=== PATIENT | female | born 1945 | race Caucasian/White ===

== ENCOUNTER → 2016-04-25 | Outpatient (CLI) | payer OTHER, MEDICARE ==
--- NOTE | 2016-04-25 15:27 | DI ---
History: Left knee pain. 4 view. Prior study: None. Findings: Advanced degenerative changes of the patellofemoral junction with small knee joint effusion observed is in the suprapatellar bursa. Mild valgus angulation of the knee. Moderate degenerative ch anges in the medial compartment with some marginal osteophytes. Patient has a fabella. Impression: Degenerative changes patellofemoral junction Some narrowing of the medial joint compartment with mild valgus angulation. Small knee joint effusion
== END ==
LOC: ORTHO 11:06
PROVIDERS: ATTEND Physician Assistant
DX: M25.562 Pain in left knee (principal); M17.12 Unilateral primary osteoarthritis, left knee; M25.462 Effusion, left knee; W00.0XXA Fall on same level due to ice and snow, initial encounter; Y93.89 Activity, other specified; Y92.481 Parking lot as the place of occurrence of the external cause
CPT/HCPCS: 73564

== ENCOUNTER → 2016-05-18 | Outpatient (CLI) | payer OTHER, MEDICARE | LOC: MMPC 10:00 | PROVIDERS: ATTEND Orthopaedic Surgery | DX: M17.12 Unilateral primary osteoarthritis, left knee (principal) | CPT/HCPCS: 20610 ×2; 99213; G0463; J7325 ==

== ENCOUNTER → 2016-06-23 | Outpatient (CLI) | payer OTHER, MEDICARE | LOC: MMPC 09:00 | PROVIDERS: ATTEND Family Medicine | DX: I10 Essential (primary) hypertension (principal); E78.5 Hyperlipidemia, unspecified; E11.9 Type 2 diabetes mellitus without complications; F41.9 Anxiety disorder, unspecified; F32.9 Major depressive disorder, single episode, unspecified; E66.9 Obesity, unspecified; R35.0 Frequency of micturition | CPT/HCPCS: 99214 ==

== ENCOUNTER → 2016-06-26 | Outpatient (CLI) | payer OTHER, MEDICARE | LOC: MMPC 10:00 | PROVIDERS: ATTEND Orthopaedic Surgery | DX: M17.12 Unilateral primary osteoarthritis, left knee (principal) | CPT/HCPCS: 20610 ×2; G0463; J0702 ==

== ENCOUNTER → 2016-07-03 | Outpatient (CLI) | payer OTHER, MEDICARE ==
--- NOTE | 2016-07-03 12:15 | DI ---
CT LOWER EXTR W/O CONTRAST,07/03/2016 9:54 AM: Clinical History: Primary osteoarthritis of the left knee. Previous Exam: None at this facility. Findings: Multiple helically acquired CT images are obtained through the left hip and and the left femur demons trating diffuse degenerative changes of the left knee. Osteophytes are noted. There is some subchondr al cyst formation. There is a large amount of fluid within the left knee joint. The ankle is unremarkable except for some mild degenerative changes of the tarsometatarsal joints. The surrounding soft tissues are unremarkable. There are mild degenerative changes involving the subtalar joints as well. Impression: 1. Diffuse degenerative changes of the left knee with a left knee joint effusion. 2. Mild diffuse degenerative changes of the ankle.
== END ==
LOC: CT 09:46
PROVIDERS: ATTEND Orthopaedic Surgery
DX: M17.12 Unilateral primary osteoarthritis, left knee (principal); M25.462 Effusion, left knee
CPT/HCPCS: 73700

== ENCOUNTER → 2016-07-12 | Outpatient (CLI) | payer OTHER, MEDICARE | LOC: MMPC 09:00 | PROVIDERS: ATTEND Family Medicine | DX: H10.31 Unspecified acute conjunctivitis, right eye (principal); F32.0 Major depressive disorder, single episode, mild; E10.9 Type 1 diabetes mellitus without complications | CPT/HCPCS: 99213; G0463 ==

== ENCOUNTER → 2016-07-20 | Outpatient (CLI) | payer OTHER, MEDICARE ==
[2016-07-20 08:30] LABS: HEMATOCRIT 44.2 % (37.0-47.0); HEMOGLOBIN 14.7 g/dL (12.0-16.0); MEAN CORPUSCULAR HEMOGLOBIN 29.1 PG (27-31); MEAN CORPUSCULAR HGB CONC 33.3 g/dL (33-37); MEAN CORPUSCULAR VOLUME 87.4 FL (81-99); MEAN PLATELET VOLUME 11.2 FL (7.4-12.2); RED BLOOD COUNT 5.06 10^6/uL (4.20-5.40)
[2016-07-20 09:02] LABS: BLOOD UREA NITROGEN 19 mg/dL (7-22); BUN/CREATININE RATIO 23.75 (6-20); CALCIUM 9.8 mg/dL (8.7-10.7); CHOL/HDL RATIO 2.89 RATIO (0-4.0); EST GLOMERULAR FILTRATION > 60 (>60 ml/min/1.73m(2)); HDL CHOLESTEROL 49 mg/dL (40-150); HEMOGLOBIN A1C 8.11 % (4.2-6.0); SERUM ALBUMIN 3.8 g/dL (3.5-4.8); SERUM CHOLESTEROL 142 mg/dL (120-200)
== END ==
LOC: LAB 08:13
PROVIDERS: ATTEND Family Medicine
DX: E11.9 Type 2 diabetes mellitus without complications (principal); Z79.4 Long term (current) use of insulin; E78.5 Hyperlipidemia, unspecified; I10 Essential (primary) hypertension
CPT/HCPCS: 36415; 80053; 80061; 83036; 85027

== ENCOUNTER → 2016-07-24 | Outpatient (CLI) | payer OTHER, MEDICARE ==
[2016-07-24 08:40] LABS: HEMATOCRIT 45.1 % (37.0-47.0); HEMOGLOBIN 14.9 g/dL (12.0-16.0); MEAN CORPUSCULAR HEMOGLOBIN 28.8 PG (27-31); MEAN CORPUSCULAR VOLUME 87.1 FL (81-99); MEAN PLATELET VOLUME 10.9 FL (7.4-12.2); RED BLOOD COUNT 5.18 10^6/uL (4.20-5.40)
[2016-07-24 09:02] LABS: HEMOGLOBIN A1C 8.13 % (4.2-6.0)
[2016-07-24 09:05] LABS: BILIRUBIN,URINE NEGATIVE (NEG); BLOOD UREA NITROGEN 19 mg/dL (7-22); BUN/CREATININE RATIO 23.75 (6-20); CALCIUM 9.2 mg/dL (8.7-10.7); COLOR,URINE YELLOW; EST GLOMERULAR FILTRATION > 60 (>60 ml/min/1.73m(2)); GLUCOSE, URINE (UA) NEGATIVE (NEG); NITRATE,URINE NEGATIVE (NEG); OCCULT BLOOD,URINE NEGATIVE (NEG); PROTEIN,URINE TRACE mg/dl (NEG); UROBILINOGEN,URINE 0.2 mg/dL (0.2)
[2016-07-24 09:54] LABS: BACTERIA,URINE MODERATE; CLARITY,URINE SLIGHTLY CLOUDY (CLEAR); RBC,URINE 0-1 /hpf; SQUAMOUS EPITHELIAL CELL,UR MANY; URINE SAMPLE TYPE VOIDED SPECIMEN
== END ==
LOC: LAB 08:18
PROVIDERS: ATTEND Orthopaedic Surgery
DX: E10.9 Type 1 diabetes mellitus without complications (principal); Z79.4 Long term (current) use of insulin; M17.12 Unilateral primary osteoarthritis, left knee; I10 Essential (primary) hypertension; F32.9 Major depressive disorder, single episode, unspecified
CPT/HCPCS: 36415; 80048; 81001; 83036; 85027; 86850; 87641

== ENCOUNTER → 2016-07-26 | Outpatient (CLI) | payer OTHER, MEDICARE | LOC: MOB LAB 10:29 | PROVIDERS: ATTEND Family Medicine | DX: M25.562 Pain in left knee (principal); R82.99 Other abnormal findings in urine | CPT/HCPCS: 87088 ==

== ENCOUNTER → 2016-07-28 | Outpatient (CLI) | payer OTHER, MEDICARE | LOC: MMPC 10:00 | PROVIDERS: ATTEND Orthopaedic Surgery | DX: M17.12 Unilateral primary osteoarthritis, left knee (principal); E10.65 Type 1 diabetes mellitus with hyperglycemia | CPT/HCPCS: 99213; G0463 ==

== ENCOUNTER → 2016-08-10 | Outpatient (CLI) | payer OTHER, MEDICARE ==
[2016-08-10 08:38] LABS: HEMOGLOBIN A1C 7.84 % (4.2-6.0)
== END ==
LOC: LAB 08:08
PROVIDERS: ATTEND Family Medicine
DX: E10.9 Type 1 diabetes mellitus without complications (principal); Z79.4 Long term (current) use of insulin
CPT/HCPCS: 36415; 83036

== ENCOUNTER → 2016-08-30 | Outpatient (CLI) | payer OTHER, MEDICARE ==
[2016-08-30 10:33] LABS: HEMATOCRIT 48.4 % (37.0-47.0); HEMOGLOBIN 16.1 g/dL (12.0-16.0); MEAN CORPUSCULAR HEMOGLOBIN 28.2 PG (27-31); MEAN CORPUSCULAR HGB CONC 33.3 g/dL (33-37); MEAN CORPUSCULAR VOLUME 84.9 FL (81-99); MEAN PLATELET VOLUME 11.1 FL (7.4-12.2); RED BLOOD COUNT 5.7 10^6/uL (4.20-5.40)
--- NOTE | 2016-08-30 10:35 | EKG ---
[address] [address] Measurements Intervals [place] Rate: 85 P: 67 PA: 161 QRS: 53 QRSD: 92 T: 28 QT: 356 QTc: 398 Interpretive Statements SINUS RHYTHM Compared to ECG 03/04/2014 09:11:07 No significant changes Electronically Signed On 08-30-16 13:59:26 MDT by Royer Christine [email or web address]
[2016-08-30 10:36] LABS: BILIRUBIN,URINE NEGATIVE (NEG); COLOR,URINE YELLOW; NITRATE,URINE NEGATIVE (NEG); OCCULT BLOOD,URINE NEGATIVE (NEG); PH,URINE 5.5 (5.0-8.5); PROTEIN,URINE TRACE mg/dl (NEG); UROBILINOGEN,URINE 0.2 mg/dL (0.2)
[2016-08-30 10:40] LABS: CLARITY,URINE CLEAR (CLEAR); GLUCOSE, URINE (UA) >=1000 mg/dL (NEG)
[2016-08-30 10:53] LABS: SQUAMOUS EPITHELIAL CELL,UR FEW; URINE SAMPLE TYPE CLEAN CATCH URINE
[2016-08-30 11:37] LABS: BLOOD UREA NITROGEN 19 mg/dL (7-22); BUN/CREATININE RATIO 23.75 (6-20); EST GLOMERULAR FILTRATION > 60 (>60 ml/min/1.73m(2))
[2016-08-30 11:38] LABS: CALCIUM 10.5 mg/dL (8.7-10.7)
== END ==
LOC: LAB 10:05 → EKG 10:05
PROVIDERS: ATTEND Orthopaedic Surgery
DX: E10.9 Type 1 diabetes mellitus without complications (principal); Z79.4 Long term (current) use of insulin; I87.2 Venous insufficiency (chronic) (peripheral); I10 Essential (primary) hypertension
CPT/HCPCS: 36415; 80048; 81001; 85027; 93005; 93010

== ENCOUNTER → 2016-08-31 | Outpatient (CLI) | payer OTHER, MEDICARE ==
[2016-08-31 08:01] LABS: BILIRUBIN,URINE NEGATIVE (NEG); COLOR,URINE YELLOW; GLUCOSE, URINE (UA) 100 mg/dL (NEG); NITRATE,URINE NEGATIVE (NEG); OCCULT BLOOD,URINE NEGATIVE (NEG); PROTEIN,URINE TRACE mg/dl (NEG); UROBILINOGEN,URINE 0.2 mg/dL (0.2)
[2016-08-31 08:03] LABS: CLARITY,URINE SLIGHTLY CLOUDY (CLEAR)
[2016-08-31 08:08] LABS: RBC,URINE 0 /hpf; RENAL EPITHELIAL CELLS,URINE RARE; SQUAMOUS EPITHELIAL CELL,UR MANY
[2016-08-31 08:09] LABS: BACTERIA,URINE RARE; URINE SAMPLE TYPE CLEAN CATCH URINE
== END ==
LOC: LAB 07:29
PROVIDERS: ATTEND Orthopaedic Surgery
DX: E10.9 Type 1 diabetes mellitus without complications (principal); Z79.4 Long term (current) use of insulin
CPT/HCPCS: 81001

== ENCOUNTER → 2016-09-18 | Outpatient (CLI) | payer OTHER, MEDICARE ==
[2016-09-18 08:27] LABS: HEMOGLOBIN A1C 8.28 % (4.2-6.0)
[2016-09-18 08:36] LABS: BILIRUBIN,URINE NEGATIVE (NEG); CLARITY,URINE CLEAR (CLEAR); COLOR,URINE YELLOW; GLUCOSE, URINE (UA) NEGATIVE (NEG); NITRATE,URINE NEGATIVE (NEG); OCCULT BLOOD,URINE NEGATIVE (NEG); PROTEIN,URINE NEGATIVE (NEG); UROBILINOGEN,URINE 0.2 mg/dL (0.2)
[2016-09-18 08:38] LABS: RBC,URINE 0 /hpf; URINE SAMPLE TYPE CLEAN CATCH URINE
[2016-09-18 08:39] LABS: SQUAMOUS EPITHELIAL CELL,UR FEW; WBC,URINE RARE
== END ==
LOC: LAB 08:02
PROVIDERS: ATTEND Orthopaedic Surgery
DX: E10.9 Type 1 diabetes mellitus without complications (principal); Z79.4 Long term (current) use of insulin; M17.12 Unilateral primary osteoarthritis, left knee
CPT/HCPCS: 36415; 81001; 83036

== ENCOUNTER → 2016-11-01 | Outpatient (CLI) | payer OTHER, MEDICARE | LOC: MMPC 09:45 | PROVIDERS: ATTEND Orthopaedic Surgery | DX: E11.9 Type 2 diabetes mellitus without complications (principal); Z79.4 Long term (current) use of insulin | CPT/HCPCS: G0108 ==

== ENCOUNTER → 2016-11-15 | Outpatient (CLI) | payer OTHER, MEDICARE | LOC: MMPC 09:30 | PROVIDERS: ATTEND Orthopaedic Surgery | DX: E11.9 Type 2 diabetes mellitus without complications (principal); Z79.4 Long term (current) use of insulin | CPT/HCPCS: G0108 ==

== ENCOUNTER 2018-05-29 07:14 | Observation (INO) ==
[2018-05-29] MEDS ORDERED: Sodium Chloride 0.9% 1,000 ML PRIMARY IV ONE (07:24)
[2018-05-29 07:34] LABS: BASOPHILS # (AUTO) 0.03 10*3/UL; BASOPHILS % (AUTO) 0.3 % (0-1); EOSINOPHILS # (AUTO) 0.05 10*3/UL; EOSINOPHILS % (AUTO) 0.5 % (0-8); Hematocrit [HCT] 47.3 % (37.0-47.0); Hemoglobin [HGB] 15.9 g/dL (12.0-16.0); LYMPHOCYTES # (AUTO) 1.56 10*3/uL; MEAN CORPUSCULAR HGB CONC 33.6 g/dL (33-37); MEAN CORPUSCULAR VOLUME 86.2 FL (81-99); MEAN PLATELET VOLUME 11.4 FL (7.4-12.2); MONOCYTES # (AUTO) 0.54 10*3/UL (0.3-0.8); MONOCYTES % (AUTO) 5.3 % (5-15); NEUTROPHILS # (AUTO) 7.91 10*3/UL; NEUTROPHILS % (AUTO) 78.4 % (50-80); RED BLOOD COUNT 5.49 10^6/uL (4.20-5.40)
[2018-05-29 07:36] LABS: PLATELET MORPHOLOGY COMMENT NORMAL MORPHOLOGY (NORM); RBC MORPHOLOGY COMMENT NORMAL MORPHOLOGY (NORM); WBC MORPHOLOGY COMMENT NORMAL MORPHOLOGY (NORM)
--- NOTE | 2018-05-29 07:36 | DI ---
CT Head WO Contrast,05/29/2018 7:20 AM: Clinical History: Slurred speech. Previous Exam: May 01, 2017 Findings: Multiple helically acquired CT images are obtained through the brain without contrast, and demonstrat e normal, symmetric ventricles and other CSF containing spaces. There is no mass, hemorrhage or midli ne shift. The surrounding soft tissue and osseous structures are unremarkable. Impression: Normal CT head.
[2018-05-29 07:41] LABS: BLOOD UREA NITROGEN 19 mg/dL (7-22); BUN/CREATININE RATIO 27.14 (6-20); SERUM ALBUMIN 4.6 g/dL (3.5-4.8)
--- NOTE | 2018-05-29 07:43 | EKG ---
[address] [place] [address] Measurements Intervals [place] Rate: 87 P: 63 OR: 156 QRS: 30 QRSD: 146 T: 38 QT: 434 QTc: 478 Interpretive Statements SINUS RHYTHM RIGHT BUNDLE BRANCH BLOCK [120+ ms QRS DURATION, UPRIGHT V1, 40+ ms S IN I/aVL/V4/V5/V6] Compared to ECG 01/10/2017 08:45:45 Right bundle-branch block now present Electronically Signed On 05-29-18 10:30:21 MST by Kel Pastor MD [id number]
--- NOTE | 2018-05-29 08:53 | PDOC ---
Neuro Symptoms / Deficit HPI - General Chief Complaint: Neurological Complaints Stated Complaint: stroke symptoms Date Seen by Provider: 05/29/18 Time Seen by Provider: 07:14 Source: POSITIVE: Patient, EMS, Other (daughter) Exam Limitations: POSITIVE: No limitations Nurse's Notes Reviewed & Considered: Yes EMS Report Reviewed & Considered: Verbal - History of Present Illness Initial Comments: The patient is a 72-year-old female who is brought to the emergency room by ambulance. The patient states that this morning when she awoke she "slid out of bed and I couldn't get up". She states that she had this sensation of weakness in her legs. Patient's granddaughter, who is staying with her, called 911. On arrival of the paramedics, the paramedics state that she had "a little weakness on the left side of her face ". She also states that her "speech was slurred and she had difficulty finding her words ". Patient has a history of type I diabetes mellitus and paramedics took her blood sugar at the scene and found it to be 57; they administered a half an amp of D50. 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 Upon arrival to the emergency room the patient is asymptomatic. History of hypertension. Body Location Affected: REPORTS: Other (Stroke type symptoms as above) Duration: Unknown (Symptoms were apparently present when she awoke from sleep) Severity: Moderate Quality: REPORTS: Other (Patient has no head pain, chest pain, or any other pain.) Context: DENIES: Insect Bite, Tick Bite, Falling Injury, Head Injury, Other Character of Deficit(s): REPORTS: Left, Facial, Weak ("Legs were weak "on awakening) Associated Symptoms: DENIES: Fever, Chills, Sweating, Chest Pain, Neck Pain, Back Pain, Headache, Fainting, Seizure, Altered Mental Status, Disoriented, Confused, Agitated, Trouble Concentrating, Trouble Thinking, Decreased Responsiveness, Unresponsive, Other Usual Ability to Walk/Stand: REPORTS: Walks w/o Assistance Usual Cognition: REPORTS: Alert & Oriented x3 Similar Symptoms Previously: No Recently seen/treated/hospitalized: No Any Prior Injuries Related to Current Complaint?: No - Patient Home Medications Home Medications: Home Medications Multivitamins W-Minerals/Lut [Centrum Silver Tablet] 1 ea PO DAILY #30 08/23/12 Glucagon,Human Recombinant [Glucagon Emergency Kit] 1 mg IJ ONCE PRN #1 unit 12/23/12 amlodipine 10 mg tablet 10 mg PO QD #90 tab 04/26/18 atorvastatin 40 mg tablet 40 mg PO QHS #90 tab 04/26/18 gabapentin 300 mg capsule 300 mg PO QHS #90 cap 04/26/18 insulin aspart U- 100 100 unit/mL subcutaneous solution 60 unit SUBCUT QD #4 vial 04/26/18 liraglutide 0.6 mg/0.1 mL (18 mg/3 mL) subcutaneous pen injector 1.8 mg SUBCUT QDAY #9 ml 04/26/18 lorazepam 0.5 mg tablet 0.5 mg PO BID PRN #60 tab 04/26/18 oxybutynin chloride 5 mg tablet 5 mg PO BID #180 tab 04/26/18 spironolactone 25 mg-hydrochlorothiazide 25 mg tablet 1 tab PO QDAY #90 tab 04/26/18 trazodone 50 mg tablet 50 mg PO QHS PRN #90 tab 04/26/18 venlafaxine ER 150 mg capsule,extended release 24 hr 150 mg PO QD #90 cap 04/26/18 Aspirin/Acetaminophen/Caffeine [Excedrin Extra Strength Caplet] 1 ea PO DAILY 05/29/18 - Patient Allergies Allergies/Adverse Reactions: Allergies Allergy/AdvReac Type Severity Reaction Status Date / Time codeine [Codeine] AdvReac Mild NAUSEA Verified 05/29/18 07:32 Past Medical History - heen HEENT History: Cataracts Additional HEENT History: Wears glasses Cardiovascular History: Hypertension, Hyperlipidemia Respiratory History: Snoring Gastrointestinal History: Denies History Genitourinary History: Denies History Additional Genitourinary History: 03/07/17 has had frequency since [facility] 01/30/17. today [place] blood Endocrine History: Type 1 Diabetes Additional Endocrine History: 08/30/16 PT IN THIS AM FOR PRE OP LABS. URINE GLUCOSE RESULT OF >[address] HANEY. I SPOKE WITH DR HANEY WHO DIDNT FEEL THIS WAS OF CONCERN AND TO GO BY THE BLOOD GLUCOSE OF 64. WILL DISCUSS THIS WITH DR ROCA IN THE MORNING FOR FURTHER DIRECTION. SB Musculoskeletal History: Arthritis, Osteoporosis Prosthesis or Implant: Yes (Right wrist, left knee) Additional Musculoskeletal History: HX OF RIGHT WRIST FX, bilat arm fx, left total knee Neurological History: Denies History Blood Disorders: Denies History Psychiatric History: Depression, Anxiety Disorders History of Sexually Transmitted Diseases: No Female Reproductive History: Hysterectomy Obstetrical History: Denies History Cancer History: Denies History In Past Year Been Physically Harmed or Verbally Threatened: No History of MDRO: Unknown History of Other Communicable Diseases: No Tobacco Use: Never Smoker Alcohol Use: Rarely In the Past 12 Months, Have Used or Abuse Any Substance: None Previous Surgical History: Yes Type / Date of Surgery: HYST/ BILAT OOPHORECTOMY/ APPY/ COLONOSCOPY/ ORIF RIGHT WRIST/ TONSILLECTOMY/ LEFT TOTAL KNEE Anesthesia Reactions: No Malignant Hyperthermia: No Significant Family History: Heart disease, Renal disease Additional Family History: R/A Past Medical History Reviewed: Reviewed - No Changes ROS - Limitations ROS Limitations: No Limitations Constitution: REPORTS: Denies Symptoms Cardiovascular: REPORTS: Denies Cardiac Symptoms Respiratory: REPORTS: Denies Resp Symptoms Neurological: REPORTS: Weakness (Patient reports sensation of weakness to her legs upon), Other (Difficulty speaking; paramedics report some left facial weakness upon their arrival) Gastrointestinal: REPORTS: Denies GI Symptoms Endocrine: REPORTS: Denies Symptoms Musculoskeletal: REPORTS: Denies MS Symptoms Genitourinary: REPORTS: Denies Symptoms Eyes: REPORTS: Denies Symptoms ENT: REPORTS: Denies Symptoms Skin: REPORTS: Denies Skin Symptoms Lympathic: REPORTS: Denies Lympathic Symptoms Immunologic: POSITIVE: Denies Symptoms Psychiatric: POSITIVE: Denies Psych Symptoms Neuro Symptoms / Deficit Exam - General Appearance General Appearance: POSITIVE: No Acute Distress, Alert - HEENT HEENT: POSITIVE: Head Inspection Nml, Eyes Inspection Nml, Ears Inspection Nml, Nose Inspection Nml, Oral/Dental Inspect. Nml, Pharynx Inspect. Nml, PERRL, EOMI - Pupil Size Pupil Size: 3 mm: Bilateral (PERRLA) - Neuro / Psych Higher Functions: POSITIVE: Oriented to Person, Oriented to Place, Oriented to Time, Normal Speech, Normal Cognition, Appropriate Mood, Appropriate Affect. NEGATIVE: Disoriented to Person, Disoriented to Place, Disoriented to Time, Speech Abnormalities, Cognition Abnormalities, Depressed Mood, Depressed Affect, Abnml Response to Command, No Response to Command, Eyes Open to Command, Slow Response to Command, Inapp Response to Command, Expressive Aphasia, Receptive Aphasia, Abnml Response to Pain, Withdraws to Pain, Flexor to Pain, Extensor to Pain, No Response to Pain, Dysarthria, Other Cranial Nerves: POSITIVE: Normal As Tested, No Evidence of Acute CVA Cerebellar: POSITIVE: Normal As Tested Peripheral Exam: POSITIVE: Sensation Normal, Motor Normal, Reflexes Normal Reflexes: Patellar (R): 2+, Patellar (L): 2+ - Neck Neck: POSITIVE: Supple, Non-Tender, No Carotid Bruit - Respiratory Respiratory: POSITIVE: No Respiratory Distress, Breath Sounds Normal - Cardiovascular Cardiovascular: POSITIVE: Regular Rate & Rhythm, Heart Sounds Normal Peripheral Pulses: Radial (R): 2+, Radial (L): 2+, Dorsalis-pedis (R): 2+, Dorsalis-pedis (L): 2+ - Abdomen Abdomen: Soft: (All Quadrants), Normal Bowel Sounds: (All Quadrants), Denies Tenderness: (All Quadrants), No Splenomegaly: (All Quadrants), No Hepatomegaly: (All Quadrants), No Guarding: (All Quadrants), No Rebound: (All Quadrants), No Palpable Pulse: (All Quadrants), No Palpabale Mass: (All Quadrants), No Distention: (All Quadrants), No Rigidity: (All Quadrants) - Skin Skin: POSITIVE: Intact, Normal For Race, Warm, Dry, No Rash - Extremities Extremity: Non-Tender: (All Extremities), Normal ROM: (All Extremities), Normal Inspection: (All Extremities) Neuro Symptom/Deficit Progress - Results Reviewed by me Xrays/CTs/US Reviewed by me: Yes Discussed with Radiologist: Yes Radiology Findings: CT scan head without contrast normal Lab Results Reviewed by Me: Yes CBC and BMP: 05/29/18 07:08 05/29/18 07:08 Lab Results:: Laboratory Results 05/29/18 05/29/18 05/29/18 07:08 07:08 07:08 WBC 10.10 RBC 5.49 H Hgb 15.9 Hct 47.3 H MCV 86.2 MCH 29.0 MCHC 33.6 RDW Std Deviation 44.1 RDW Coeff of Fernando 14.1 Plt Count 330 MPV 11.4 Immature Gran % (Auto) 0.1 Neut % (Auto) 78.4 Lymph % (Auto) 15.4 Benzie % (Auto) 5.3 Eos % (Auto) 0.5 Baso % (Auto) 0.3 Immature Gran # (Auto) 0.01 Neut # (Auto) 7.91 Lymph # (Auto) 1.56 Benzie # (Auto) 0.54 Eos # (Auto) 0.05 Baso # (Auto) 0.03 WBC Morphology Comment Normal morphology Plt Morphology Comment Normal morphology RBC Morph Comment Normal morphology PT INR Sodium 141 Potassium 3.1 L Chloride 101 Carbon Dioxide 29 Anion Gap 11 BUN 19 Creatinine 0.7 BUN/Creatinine Ratio 27.14 H Glucose 68 L Calculated Osmolality 291.0 Calcium 10.0 Total Bilirubin 0.4 AST 43 H ALT 30 Alkaline Phosphatase 153 H Troponin I 0.026 Total Protein 7.8 Albumin 4.6 Globulin 3.2 Albumin/Globulin Ratio 1.40 TSH 05/29/18 05/29/18 07:08 07:08 WBC RBC Hgb Hct MCV MCH MCHC RDW Std Deviation RDW Coeff of Fernando Plt Count MPV Immature Gran % (Auto) Neut % (Auto) Lymph % (Auto) Benzie % (Auto) Eos % (Auto) Baso % (Auto) Immature Gran # (Auto) Neut # (Auto) Lymph # (Auto) Benzie # (Auto) Eos # (Auto) Baso # (Auto) WBC Morphology Comment Plt Morphology Comment RBC Morph Comment PT 9.4 L INR 0.92 Sodium Potassium Chloride Carbon Dioxide Anion Gap BUN Creatinine BUN/Creatinine Ratio Glucose Calculated Osmolality Calcium Total Bilirubin AST ALT Alkaline Phosphatase Troponin I Total Protein Albumin Globulin Albumin/Globulin Ratio TSH 2.35 EKG Interpreted/Reviewed By Me:: Yes (normal sinus rhythm with right bundle- branch block) EKG Interpretation:: POSITIVE: Normal Sinus Rhythm, Normal Rate, Normal ST/T, Abnormal EKG (Right bundle-branch block). NEGATIVE: Normal Intervals (Right bundle-branch block), Normal Gardner, Normal QRS (Right bundle-branch block) - Patient's Progress Pain Medication Addressed: POSITIVE: Not Applicable School/Work Release Addressed: POSITIVE: Not Applicable Re-Examine Time:: 08:40 Re-Examine Comment: Patient remained asymptomatic throughout her stay in the emergency room. Advised patient and her family that she most likely had a transient ischemic attack. Case discussed with hospitalist on-call, and patient is admitted for further evaluation and treatment. Status: POSITIVE: Unchanged Antibiotics Given: No CVA/Syncope Quality Measure Initiative: POSITIVE: EKG - Consult Consult (If Yes, Name of Consulting MD & Time Called): Yes (Dr. Souza, hospitalist, [id number]) Consulting MD will see pt:: POSITIVE: [facility] Admit Counseled: POSITIVE: Patient, Family, RE: Lab Results, RE: Radiology Results, RE: DX, RE: Need for F/U Patient Care Time - Estimated PCT Patient Care Time (In Minutes): 50 Vital Signs - Recent Vital Signs Vital Signs: Vital Signs (Last 8 hours) Temp Pulse Pulse Resp BP Pulse Ox 05/29/18 07:24 96.4 F L 93 88 16 147/86 94 - VS Reviewed Vital Signs Reviewed: Yes Discharge Clinical Impression: Transient ischemic attack (TIA) Discharge Disposition: Admit to Inpatient Condition: Fair Follow Up With: KIKO HANEY [Primary Care Provider] - Date Decision to Admit to Inpatient: 05/29/18 Time Decision to Admit to Inpatient: 08:40
[2018-05-29] MEDS ORDERED: Insulin Sliding Scale Protocol SUBCUT PRN (10:29)
[2018-05-29] MEDS ORDERED: LIDOCAINE W/ SODIUM BICARB 0.5 ML SYR SUBD PRN (10:29)
[2018-05-29] MEDS ORDERED: DEXTROSE 50%-WATER SYRINGE 50 ML SYRINGE IVP PRN (10:29)
[2018-05-29] MEDS ORDERED: DEXTROSE 31 GM GEL PO PRN (10:29)
[2018-05-29] MEDS ORDERED: POTASSIUM CHLORIDE 20 MEQ TAB PO ONE (10:29)
[2018-05-29] MEDS ORDERED: Glucagon Inj Vial 1 MG/ML VIAL IM PRN (10:29)
[2018-05-29] MEDS ORDERED: LORazepam 1 MG TABLET PO PRN (11:15)
--- NOTE | 2018-05-29 12:20 | HOSP.PROG ---
ABCD-2 Score - ABDC-2 Score Age Greater Than or Equal to 60 Years: Yes SBP Greater Than/Equal 140 or DBP Greater Than/Equal 90: Yes Clinical Features of the TIA: Speech Disturbance Without Weakness Duration of Symptoms: 10-59 Minutes History of Diabetes: Yes (patient is being admitted for observation and workup of TIA versus hypoglycemia) ABCD-2 Score: 5 ABCD-2 Risk: Moderate
--- NOTE | 2018-05-29 12:25 | PDOC ---
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 She was not thinking straight, and was somewhat confused and called her for help. He felt that something was wrong, and he called the patient's granddaughter in and she called 911 and the patient was brought in for evaluation. It was reported to the emergency room that the patient had slurred speech and weakness I believe on her right side although the patient denies feeling weakness and did not feel that her speech was slurred at all. She was found on seen to have a blood sugar in the 50s and then it was 68 on laboratory check here. The patient had a head CT scan that was negative for any acute bleed. It was felt that she probably had had a transient ischemic attack and I was asked to admit the patient. She was quite hypertensive with systolics in the 170s to 180s in the emergency room. She denied any symptoms of chest pain, shortness breath, nausea or vomiting. She states she's never had blood sugars caused these symptoms before and in the past when she has had hypoglycemic episodes, she has woke up with them in the middle of the night. She takes Excedrin daily. She does not take an aspirin otherwise. She states to me that she does not smoke, and does not have atrial fibrillation, and does not drink alcohol. Her symptoms of confusion were completely resolved by the time I saw her late this morning, and her blood sugar was up to over 150 when I saw her. She states that she's been feeling very stressed with family situations and wonders if that is not playing a role in things. Past Medical History Medical History: 1. Hypertension. 2. Diabetes on insulin pump. 3. Hypercholesteremia. 4. Depression. 5. Osteoporosis. 6. History of previous right humeral neck fracture after a fall Surgical History: 1. Hysterectomy. 2. History of previous wrist surgery. 3. Left knee replacement Pertinent Family History: History of coronary artery disease in her mother, her sister had a stroke. Past Social History: Doesn't smoke, doesn't drink, no drugs. Lives with her who has the beginning of Alzheimer's. Patient has 4 children, but her daughter is unfortunately an alcoholic. She is caring for her grandchildren. Tobacco Use: Never Smoker In the Past 12 Months, Have Used or Abuse Any of the Following Substance: None Alcohol Use: None Medication / Allergies Home Medications: Home Medications Medication Instructions Recorded Confirmed Type Multivitamins W-Minerals/Lut 1 ea PO DAILY #30 12/07/11 05/29/18 History [Centrum Silver Tablet] Glucagon,Human Recombinant 1 mg IJ ONCE PRN #1 unit 12/23/12 05/29/18 History [Glucagon Emergency Kit] amlodipine 10 mg tablet 10 mg PO QD #90 tab 04/26/18 05/29/18 Rx atorvastatin 40 mg tablet 40 mg PO QHS #90 tab 04/26/18 05/29/18 Rx gabapentin 300 mg capsule 300 mg PO QHS #90 cap 04/26/18 05/29/18 Rx insulin aspart U- 100 100 unit/mL 60 unit SUBCUT QD #4 vial 04/26/18 05/29/18 Rx subcutaneous solution liraglutide 0.6 mg/0.1 mL (18 mg/3 1.8 mg SUBCUT QDAY #9 ml 04/26/18 05/29/18 Rx mL) subcutaneous pen injector lorazepam 0.5 mg tablet 0.5 mg PO BID PRN #60 tab 04/26/18 05/29/18 Rx oxybutynin chloride 5 mg tablet 5 mg PO BID #180 tab 04/26/18 05/29/18 Rx spironolactone 25 1 tab PO QDAY #90 tab 04/26/18 05/29/18 Rx mg-hydrochlorothiazide 25 mg tablet trazodone 50 mg tablet 50 mg PO QHS PRN #90 tab 04/26/18 05/29/18 Rx venlafaxine ER 150 mg 150 mg PO QD #90 cap 04/26/18 05/29/18 Rx capsule,extended release 24 hr Aspirin/Acetaminophen/Caffeine 1 ea PO DAILY 05/29/18 05/29/18 History [Excedrin Extra Strength Caplet] Allergies/Adverse Reactions: Allergies Allergy/AdvReac Type Severity Reaction Status Date / Time codeine [Codeine] AdvReac Mild NAUSEA Verified 05/29/18 07:32 Review of Systems - Review of Systems All Systems: Reviewed & No Additional Complaints Except as Stated (I did a 12 point review systems and it was negative other than that discussed below and in the history of present illness.) - Additonal Details Additional ROS Details: She has been noticing that she is getting a rash that's quite itchy and that she seems to scratch and itch more when she is stressed. Exam - Vitals Vital Signs: Vital Signs Temperature 97.5 F Temperature Source Temporal Artery Scan Pulse Rate [Pulse Oximeter 86 Left] Pulse Rate 98 Respiratory Rate 20 Blood Pressure [Right Arm] 178/91 Blood Pressure 140/89 Pulse Ox 93 Oxygen Delivery Method Room Air Height 5 ft 2 in Weight 192 lb - General General Appearance: No Acute Distress - Head Head Exam: Normal Inspection, Normocephalic, Atraumatic - Eye Eye Exam: POSITIVE: No Scleral Icterus - ENT ENT Exam: POSITIVE: Mucous Membranes Moist - Neck Neck Exam: Normal Inspection, No Tenderness, No Lymphadenopathy, No Thyromegaly, JVP is not Raised - Respiratory Respiratory Exam: POSITIVE: Clear to Auscultation - Bilaterally, Breathing Non Labored, Normal to Percussion and Palpation - Cardiovascular Cardiovascular Exam: POSITIVE: RRR, No Murmur, No Clicks, No Gallops, No Rubs, No JVD - GI/Abdominal GI/Abdominal Exam: POSITIVE: Normal Bowel Sounds, Non Tender, Non Distended, So ft - Rectal Rectal Exam: POSITIVE: Deferred - External Exam: POSITIVE: Deferred Exam: POSITIVE: Deferred - Extremities Extremities Exam: POSITIVE: No Clubbing Present, No Edema Present, No Cyanosis Present - Back Back Exam: POSITIVE: No CVA Tenderness - Neurological Neurological Exam: POSITIVE: Alert, Oriented x 3, No Facial Droop, Speech Intact / Clear, Moves All Extremities Equally - Psychiatric Psychiatric Exam: POSITIVE: Normal Affect, Normal Mood Results - Labs CBC and BMP: 05/29/18 07:08 05/29/18 07:08 Additional Lab Results: Laboratory Results 05/29/18 05/29/18 05/29/18 05:00 07:08 07:08 WBC 10.10 RBC 5.49 H Hgb 15.9 Hct 47.3 H MCV 86.2 MCH 29.0 MCHC 33.6 RDW Std Deviation 44.1 RDW Coeff of Fernando 14.1 Plt Count 330 MPV 11.4 Immature Gran % (Auto) 0.1 Neut % (Auto) 78.4 Lymph % (Auto) 15.4 Gilmer % (Auto) 5.3 Eos % (Auto) 0.5 Baso % (Auto) 0.3 Immature Gran # (Auto) 0.01 Neut # (Auto) 7.91 Lymph # (Auto) 1.56 Gilmer # (Auto) 0.54 Eos # (Auto) 0.05 Baso # (Auto) 0.03 WBC Morphology Comment Normal morphology Plt Morphology Comment Normal morphology RBC Morph Comment Normal morphology PT INR Sodium 141 Potassium 3.1 L Chloride 101 Carbon Dioxide 29 Anion Gap 11 BUN 19 Creatinine 0.7 BUN/Creatinine Ratio 27.14 H Glucose 68 L Calculated Osmolality 291.0 Calcium 10.0 Magnesium 1.9 Total Bilirubin 0.4 AST 43 H ALT 30 Alkaline Phosphatase 153 H Troponin I Total Protein 7.8 Albumin 4.6 Globulin 3.2 Albumin/Globulin Ratio 1.40 TSH 05/29/18 05/29/18 05/29/18 07:08 07:08 07:08 WBC RBC Hgb Hct MCV MCH MCHC RDW Std Deviation RDW Coeff of Fernando Plt Count MPV Immature Gran % (Auto) Neut % (Auto) Lymph % (Auto) Gilmer % (Auto) Eos % (Auto) Baso % (Auto) Immature Gran # (Auto) Neut # (Auto) Lymph # (Auto) Gilmer # (Auto) Eos # (Auto) Baso # (Auto) WBC Morphology Comment Plt Morphology Comment RBC Morph Comment PT 9.4 L INR 0.92 Sodium Potassium Chloride Carbon Dioxide Anion Gap BUN Creatinine BUN/Creatinine Ratio Glucose Calculated Osmolality Calcium Magnesium Total Bilirubin AST ALT Alkaline Phosphatase Troponin I 0.026 Total Protein Albumin Globulin Albumin/Globulin Ratio TSH 2.35 - EKG Data -: EKG Interpreted by Me Rate: Normal EKG Shows Normal: Sinus Rhythm - EKG Data EKG Interpretation: Other (Right bundle branch block) - Imaging Status: Image Reviewed by Me (Head CT negative for bleed. It was read as negative by the radiologist. Pending are an MRI/MRA of brain and neck, an echocardiogram is being done) Assessment and Plan - Patient Problems (1) Transient ischemic attack (TIA) Current Visit: Yes Status: Suspected Code(s): G45.9 - Transient cerebral ischemic attack, unspecified (2) Hypoglycemia Current Visit: Yes Status: Acute Code(s): E16.2 - Hypoglycemia, unspecified (3) Diabetes Current Visit: Yes Status: Chronic Code(s): E11.9 - Type 2 diabetes mellitus without complications Qualifiers: Diabetes mellitus type: type 2 Diabetes mellitus usp insulin use: with usp use Diabetes mellitus complication status: with hypoglycemia Diabetes mellitus complication detail: without coma Qualified Code(s): E11.649 - Type 2 diabetes mellitus with hypoglycemia without coma; Z79.4 - skilled nursing (current) use of insulin (4) Hypertension Current Visit: Yes Status: Acute Code(s): I10 - Essential (primary) hypertension Qualifiers: Hypertension type: essential hypertension Qualified Code(s): I10 - Essential (primary) hypertension (5) Hypercholesterolemia Current Visit: Yes Status: Chronic Code(s): E78.0 - Pure hypercholesterolemia (6) Depression Current Visit: Yes Status: Chronic Code(s): F32.9 - Major depressive disorder, single episode, unspecified Qualifiers: Depression Type: other depression Qualified Code(s): F32.89 - Other specified depressive episodes - Assessment / Plan Additional Assessment/Plan Details: Admit the patient. Get brain MRI scan in the morning as well as echocardiogram. Will get MRA of head and neck to assess carotids and cerebral vascular structures. Antiplatelet therapy. Given this is an acute situation, aspirin, 325 mg for now, and depending on workup may switch to either Plavix, dual antiplatelet therapy, or anticoagulant if indicated cardioembolic source. Given that she is on Excedrin, and she takes it daily for headaches and has aspirin, it may be worth considering just switching to Plavix if this is suspicious for a TIA after workup. Ultimately I Think the symptoms are most likely related to hypoglycemia. Telemetry monitoring. Permissive hypertension to systolic of 220 or higher and diastolic of 120 or higher. Tylenol when necessary for fever -We'll check hemoglobin A1c and monitor blood sugars. Hold off on insulin pump for now. PT/OT/speech therapy if indicated during the hospital stay. Check lipids and institute statin therapy as indicated by lipid panel. Aspiration precautions. screen for ABCD score. In that is already documented Plan above discussed with patient, and she is full code.
[2018-05-29] MEDS: ASPIRIN 325 MG TABLET PO SCH (13:53)
[2018-05-29] MEDS: Insulin Lispro Flexpen 300 UNIT/3 ML INSULN.PEN SUBCUT SCH ×3 (13:54→20:45)
[2018-05-29] MEDS: HEPARIN 5000 UNIT/1 ML SUBCUT SCH ×2 (15:29→22:33)
[2018-05-29] MEDS ORDERED: GABAPENTIN 300 MG CAPSULE PO SCH (21:00)
[2018-05-29] MEDS ORDERED: ATORVASTATIN 40 MG TABLET PO SCH (21:00)
[2018-05-29] MEDS ORDERED: traZODone Tab 50 MG TAB PO PRN (21:00)
[2018-05-30 05:34] LABS: CHOL/HDL RATIO 2.09 RATIO (0-4.0)
[2018-05-30 05:36] LABS: HEMOGLOBIN A1C 7.83 % (4.2-6.0)
[2018-05-30] MEDS: Insulin Lispro Flexpen 300 UNIT/3 ML INSULN.PEN SUBCUT SCH ×3 (07:14→16:36)
[2018-05-30] MEDS: HEPARIN 5000 UNIT/1 ML SUBCUT SCH ×2 (07:14→16:36)
[2018-05-30] MEDS: ASPIRIN 325 MG TABLET PO SCH (08:03)
[2018-05-30] MEDS ORDERED: Beta Carot W/Vit E,C,Min Tab 1 TAB TAB PO SCH (09:00)
[2018-05-30] MEDS ORDERED: VENLAFAXINE HCL XR 150 MG CAP PO SCH (09:00)
[2018-05-30 09:31] VITALS: O2SAT 92
--- NOTE | 2018-05-30 09:53 | DI ---
MRI BRAIN SCAN WITHOUT IV CONTRAST, 05/30/2018 7:00 AM: Clinical History: TIA. Prior Exam: None at this facility. Comparison Exam: CT head scan without IV contrast from 05/29/2018. Sequences: Sagittal T1; Axial KIT T2 and FLAIR. Axial diffusion weighted images with ADC mapping. 4th Ventricle: Normal. 3rd Ventricle: Mildly dilated, but normal for age. Lateral Ventricles: Mildly dilated, but normal for age. Sella: Normal size and normal pituitary gland. Cerebrum: No acute hemorrhagic or bland infarct. Multiple punctate periventricular white matter hyper intensities bilaterally extend into the watershed territory, consistent with small vessel ischemic di sease. This amount of ischemic disease is appropriate for the patient's age. Cerebellum: Normal. No cerebellopontine angle mass. Cerebellar Tonsils: Normal position. Brainstem: Normal. Diffusion Weighted Imaging: Normal. Atrophy: Moderate cerebellar and cerebral atrophy. Extracerebral Mantles/Midline Shift: No extracerebral mantle or dural lesion. No midline shift. Sinuses: Normal. Readin. No acute hemorrhagic or bland infarct. 2. Small vessel ischemic disease. 3. Moderate cerebral and cerebellar atrophy. 4. Normal diffusion weighted imaging with ADC mapping.
--- NOTE | 2018-05-30 10:00 | DI ---
MR ANGIOGRAPHY OF THE [place] [facility] [place], 05/30/2018 7:00 AM: Clinical History: TIA. Previous Exam: None at this facility. Technique: High resolution axial 3D thin slice time of flight scans are performed for the arterial ph ase. 3D MIPS reconstructions are obtained. Vertebral Arteries: Normal. The vertebral arteries are co-dominant. Basilar Artery: Normal. There is no basilar tip aneurysm or aneurysm arising from the vertebral-basil ar branches. Posterior Communicating Arteries: There is a normal right posterior communicating artery and no left posterior communicating artery. Anterior Communicating Artery: No anterior communicating artery is identified. A1-A2 Segments of Anterior Cerebral Arteries: Normal. M1-M3 Segments of Middle Cerebral Arteries: Normal. Additional Findings: The localization film shows a patent superior sagittal sinus. Reading: Normal MR angiogram scan of the [place] [facility] [place].
[2018-05-30 11:45] VITALS: BP 191/94; RESP 18; TEMP 97.6
[2018-05-30] MEDS ORDERED: LISINOPRIL 20 MG TABLET PO ONE (12:12)
--- NOTE | 2018-05-30 14:15 | DI ---
MRI MRA Neck WO Contrast,05/30/2018 12:30 PM: Clinical History: TIA. Question carotid artery stenosis. Previous Exam: None at this facility. Findings: Multiplanar MR images are obtained through the carotid systems bilaterally following a 2-D time-of-fl ight protocol. There is some low signal within the carotid bulbs bilaterally The vertebral arteries are within normal limits. The internal carotid arteries are normal. The common carotid arteries are also normal. The aortic arch is unremarkable. Impression: Low signal within the carotid bulbs bilaterally and corresponding with an estimated degree of stenosi s of approximately 50% bilaterally.
--- NOTE | 2018-05-30 15:00 | PT.PROG ---
Progress Note Progress Note: S. patient stated that she is feeling much better today, she states she feels ready to go home. O. Patient ambulated 175 feet to the therapy gym where she performed seated long arc quads, marches, heel toe raises, ball squeezes, clam shells, resisted knee flexion all x 15 bilaterally, sit to stands x 10 box step ups with #4 box x 10. Patient ascended and descended 5 stairs then ambulated 175 feet back to her room where she was left at the edge of bed with alarm and call light. A. patient tolerated therapy well, she was able to perform all exercises with no increase in pain or problems, patient would benefit from outpatient therapy at this time. P. Patient has met all goals at this time.
--- NOTE | 2018-05-30 15:21 | DCSUMMARY ---
Hospitalization Summary Admit Date: 05/29/2018 Discharge Date: 05/30/18 Primary Diagnosis:: TIA with right-sided transient symptoms Secondary Diagnosis:: Hypoglycemia in the setting of diabetes Hospital Course: This very pleasant 72-year-old female that presented yesterday with a blood sugar found on seen 50s, with confusion, right-sided weakness, right-sided facial droop and some slurred speech. The symptoms resolved very quickly in the emergency room as sugar was repleted and by the time she was admitted to the floor her blood sugars in the 150s. In the emergency room is still low in the 60s. The patient stated to me that she normally woke up with her low blood sugars and had symptoms of discomfort that she was able to treat with tello crackers and orange juice so this was very different from her normal hypoglycemic episodes. She does not have hypoglycemic episodes all that often. The patient was admitted for observation, and an extensive workup for potential etiologies of stroke was done. An echocardiogram was done and is pending. MRI scan did not show a stroke but showed small vessel ischemic disease, and a carotid MRA scan/neck MRA, without contrast, shows carotid bulb plaquing at about 50%. That was bilateral. There was no evidence of atrial fibrillation. No evidence with telemetry monitoring. Cholesterol was well-controlled with LDLs at 41. Today, her symptoms are completely resolved. She does have some chronic balance issues for which we will write a prescription for physical therapy. She has no chest pain and no shortness breath. It was noted that she was hypertensive and we did add lisinopril to her regimen which she seemed to tolerate well after the first dose. Assessment and Plan: 1. As per discharge assessments noted 2. Disposition: Patient is discharged home. 3. Condition on discharge, stable and improved. 4. Diet: regular diet 5. Activities: resume normal activities 6. Follow-Up: 1. Dr. Page one week 2. Dr. Romano, vascular surgery, for an opinion regarding carotid artery disease and whether or not she might benefit from monitoring of carotid arteries versus carotid endarterectomy. 7. Medications at the Time of Discharge: Home Medications Medication Instructions Recorded Confirmed Type Multivitamins W-Minerals/Lut 1 ea PO DAILY #30 12/07/11 05/29/18 History [Centrum Silver Tablet] amlodipine 10 mg tablet 10 mg PO QD #90 tab 04/26/18 05/29/18 Rx atorvastatin 40 mg tablet 40 mg PO QHS #90 tab 04/26/18 05/29/18 Rx gabapentin 300 mg capsule 300 mg PO QHS #90 cap 04/26/18 05/29/18 Rx insulin aspart U- 100 100 unit/mL 60 unit SUBCUT QD #4 vial 04/26/18 05/29/18 Rx subcutaneous solution liraglutide 0.6 mg/0.1 mL (18 mg/3 1.8 mg SUBCUT QDAY #9 ml 04/26/18 05/29/18 Rx mL) subcutaneous pen injector lorazepam 0.5 mg tablet 0.5 mg PO BID PRN #60 tab 04/26/18 05/29/18 Rx spironolactone 25 1 tab PO QDAY #90 tab 04/26/18 05/29/18 Rx mg-hydrochlorothiazide 25 mg tablet trazodone 50 mg tablet 50 mg PO QHS PRN #90 tab 04/26/18 05/29/18 Rx venlafaxine ER 150 mg 150 mg PO QD #90 cap 04/26/18 05/29/18 Rx capsule,extended release 24 hr Aspirin/Acetaminophen/Caffeine 1 ea PO DAILY 05/29/18 05/29/18 History [Excedrin Extra Strength Caplet] Clopidogrel Bisulfate [Plavix] 75 mg PO DAILY #30 tablet 05/30/18 Rx Lisinopril [Prinivil Tab] 20 mg PO BID #60 tab 05/30/18 Rx Exam - Vitals Vital Signs: Vital Signs Temperature 97.6 F Temperature Source Temporal Artery Scan Pulse Rate [Pulse Oximeter 108 Left] Pulse Rate 97 Respiratory Rate 18 Blood Pressure [Right Arm] 191/94 Blood Pressure 140/89 Pulse Ox 92 Oxygen Flow Rate 1 Oxygen Delivery Method Room Air Height 5 ft 2 in Weight 192 lb 3.2 oz - General General Appearance: No Acute Distress, Cooperative - Eye Eye Exam: POSITIVE: No Scleral Icterus - ENT ENT Exam: POSITIVE: Mucous Membranes Moist - Neck Neck Exam: JVP is not Raised - Respiratory Respiratory Exam: POSITIVE: Clear to Auscultation - Bilaterally, Breathing Non Labored - Cardiovascular Cardiovascular Exam: POSITIVE: RRR, No Murmur, No Clicks, No Gallops, No Rubs, No JVD - GI/Abdominal GI/Abdominal Exam: POSITIVE: Normal Bowel Sounds, Non Tender, Non Distended, Soft - Extremities Extremities Exam: POSITIVE: No Clubbing Present, No Edema Present, No Cyanosis Present - Neurological Neurological Exam: POSITIVE: Alert, Oriented x 3, No Facial Droop, Speech Intact / Clear, Moves All Extremities Equally - Psychiatric Psychiatric Exam: POSITIVE: Normal Affect, Normal Mood Data Peritnent Studies: Laboratory Results 05/30/18 05/30/18 05/30/18 05:05 05:05 05:05 Mean Blood Glucose 174.739 Hemoglobin A1c 7.83 H Triglycerides 143 Cholesterol 134 LDL Cholesterol, Calc 41.400 VLDL Cholesterol 28 HDL Cholesterol 64 Cholesterol/HDL Ratio 2.09 TSH 1.26 Free T4 1.04 05/29/18 05/29/18 05/29/18 05:00 07:08 07:08 WBC 10.10 Hgb 15.9 Hct 47.3 H Plt Count 330 Sodium 141 Potassium 3.1 L Chloride 101 Carbon Dioxide 29 Anion Gap 11 BUN 19 Creatinine 0.7 BUN/Creatinine Ratio 27.14 H Glucose 68 L Magnesium 1.9 Total Bilirubin 0.4 AST 43 H ALT 30 Alkaline Phosphatase 153 H Troponin I Total Protein 7.8 Albumin 4.6 Globulin 3.2 Albumin/Globulin Ratio 1.40 05/29/18 07:08 WBC Hgb Hct Plt Count Sodium Potassium Chloride Carbon Dioxide Anion Gap BUN Creatinine BUN/Creatinine Ratio Glucose Magnesium Total Bilirubin AST ALT Alkaline Phosphatase Troponin I 0.026 Total Protein Albumin Globulin Albumin/Globulin Ratio Procedures: [address] [facility]. [facility] [place] [address] PH: DD: [phone] FAX: [phone] ~DIAGNOSTIC IMAGING REPORT~ Patient: Beryl Song : 1945 Sex: F Age: 72 Exam Name: MRI MRA Neck WO Contrast Exam Date: 05/30/18 Report # : [id number] CPT Code: 82059 EMR/MR #: [id number] Ordering: GALINA ROGERS Admiting: GALINA ROGERS DO Primary: Neil Zapata MD Attending: GALINA ROGERS DO Signed MRI MRA Neck WO Contrast,05/30/2018 12:30 PM: Clinical History: TIA. Question carotid artery stenosis. Previous Exam: None at this facility. Findings: Multiplanar MR images are obtained through the carotid systems bilaterally following a 2-D [id number] protocol. There is some low signal within the carotid bulbs bilaterally The vertebral arteries are within normal limits. The internal carotid arteries are normal. The common carotid arteries are also normal. The aortic arch is unremarkable. Impression: Low signal within the carotid bulbs bilaterally and corresponding with an estimated degree of stenosis of approximately 50% bilaterally. Dictated By: 05/30/18 1404 STEPHANIE WALDRON MD. Signed By: 05/30/18 1415 STEPHANIE WALDRON MD. [address] [facility] [place] [address] PH: DD: [phone] FAX: [phone] ~DIAGNOSTIC IMAGING REPORT~ Patient: Beryl Song : 1945 Sex: F Age: 72 Exam Name: MRI MRA Head WO Contrast Exam Date: 05/30/18 Report # : [id number] CPT Code: 12747 EMR/MR #: [id number] Ordering: GALINA ROGERS Admiting: GALINA ROGERS DO Primary: Neil Zapata MD Attending: GALINA ROGERS DO Signed MR ANGIOGRAPHY OF THE [place], 05/30/2018 7:00 AM: Clinical History: TIA. Previous Exam: None at this facility. Technique: High resolution axial 3D thin slice time of flight scans are performed for the arterial phase. 3D MIPS reconstructions are obtained. Vertebral Arteries: Normal. The vertebral arteries are co-dominant. Basilar Artery: Normal. There is no basilar tip aneurysm or aneurysm arising from the vertebral-basilar branches. Posterior Communicating Arteries: There is a normal right posterior communicating artery and no left posterior communicating artery. Anterior Communicating Artery: No anterior communicating artery is identified. A1-A2 Segments of Anterior Cerebral Arteries: Normal. M1-M3 Segments of Middle Cerebral Arteries: Normal. Additional Findings: The localization film shows a patent superior sagittal sinus. Reading: Normal MR angiogram scan of the [place] [facility] [place]. Dictated By: 05/30/18 0950 AMMY PARKS MD. Signed By: 05/30/18 1000 AMMY PARKS MD. [address] [facility] [place] [address] PH: DD: [phone] FAX: [phone] ~DIAGNOSTIC IMAGING REPORT~ Patient: Beryl Song : 1945 Sex: F Age: 72 Exam Name: MRI Brain WO Contrast Exam Date: 05/30/18 Report # : [id number] CPT Code: 46710 EMR/MR #: [id number] Ordering: GALINA ROGERS Admiting: GALINA ROGERS DO Primary: Neil Zapata MD Attending: GALINA ROGERS DO Signed MRI BRAIN SCAN WITHOUT IV CONTRAST, 05/30/2018 7:00 AM: Clinical History: TIA. Prior Exam: None at this facility. Comparison Exam: CT head scan without IV contrast from 05/29/2018. Sequences: Sagittal T1; Axial KIT T2 and FLAIR. Axial diffusion weighted images with ADC mapping. 4th Ventricle: Normal. 3rd Ventricle: Mildly dilated, but normal for age. Lateral Ventricles: Mildly dilated, but normal for age. Sella: Normal size and normal pituitary gland. Cerebrum: No acute hemorrhagic or bland infarct. Multiple punctate periventricular white matter hyperintensities bilaterally extend into the watershed territory, consistent with small vessel ischemic disease. This amount of ischemic disease is appropriate for the patient's age. Cerebellum: Normal. No cerebellopontine angle mass. Cerebellar Tonsils: Normal position. Brainstem: Normal. Diffusion Weighted Imaging: Normal. Atrophy: Moderate cerebellar and cerebral atrophy. Extracerebral Mantles/Midline Shift: No extracerebral mantle or dural lesion. No midline shift. Sinuses: Normal. Readin. No acute hemorrhagic or bland infarct. 2. Small vessel ischemic disease. 3. Moderate cerebral and cerebellar atrophy. 4. Normal diffusion weighted imaging with ADC mapping. Dictated By: 05/30/18 0944 AMMY PARKS MD. Signed By: 05/30/18 0953 AMMY PARKS MD. [address] Medicine. [facility] [place] [address] PH: DD: [phone] FAX: [phone] ~DIAGNOSTIC IMAGING REPORT~ Patient: Beryl Song : 1945 Sex: F Age: 72 Exam Name: CT Head WO Contrast Exam Date: 05/29/18 Report # : [id number] CPT Code: 16586 EMR/MR #: [id number] Ordering: MIAH PRUITT Admiting: Primary: Neil Zapata MD Attending: Signed CT Head WO Contrast,05/29/2018 7:20 AM: Clinical History: Slurred speech. Previous Exam: May 01, 2017 Findings: Multiple helically acquired CT images are obtained through the brain without contrast, and demonstrate normal, symmetric ventricles and other CSF containing spaces. There is no mass, hemorrhage or midline shift. The surrounding soft tissue and osseous structures are unremarkable. Impression: Normal CT head. Dictated By: 05/29/18 0731 STEPHANIE WALDRON MD. Signed By: 05/29/18 0736 STEPHANIE WALDRON MD. Patient Problems - Patient Problem List (1) Transient ischemic attack (TIA) Current Visit: Yes Status: Suspected Code(s): G45.9 - Transient cerebral ischemic attack, unspecified Category: Medical (2) Hypoglycemia Current Visit: Yes Status: Acute Code(s): E16.2 - Hypoglycemia, unspecified Category: Medical (3) Diabetes Current Visit: Yes Status: Chronic Comment: Continue her insulin pump. Code(s): E11.9 - Type 2 diabetes mellitus without complications Qualifiers: Diabetes mellitus type: type 2 Diabetes mellitus shelter insulin use: with superintendent terminal use Diabetes mellitus complication status: with hypoglycemia Diabetes mellitus complication detail: without coma Qualified Code(s): E11.649 - Type 2 diabetes mellitus with hypoglycemia without coma; Z79.4 - residential (current) use of insulin Category: Medical (4) Hypertension Current Visit: Yes Status: Acute Comment: Same medication Code(s): I10 - Essential (primary) hypertension Qualifiers: Hypertension type: essential hypertension Qualified Code(s): I10 - Ess ential (primary) hypertension Category: Medical (5) Hypercholesterolemia Current Visit: Yes Status: Chronic Comment: Same med Code(s): E78.0 - Pure hypercholesterolemia Category: Medical (6) Depression Current Visit: Yes Status: Chronic Comment: Same med Code(s): F32.9 - Major depressive disorder, single episode, unspecified Qualifiers: Depression Type: other depression Qualified Code(s): F32.89 - Other specified depressive episodes Category: Medical
--- NOTE | 2018-05-30 16:07 | PTI REPORT ---
Thank you for the referral of Beryl Song. She was seen on 05/29/18 for an inpatient evaluation secondary to a possible TIA vs. hypoglycemia. SUBJECTIVE: The patient is a 72-year-old female. The patient reports that she lives in a house in [place]. 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 The patient has approximately 7 stairs to get into her home from the outside. She has a walker at home but doesn't use it. The patient was previously independent. The patient was brought into the hospital when she fell out of her bed this morning. PAST MEDICAL HISTORY: Past medical history can be found in the patient's medical record. OBJECTIVE FINDINGS: Sensation: The patient demonstrates normal and intact dermatomes and myotomes in bilateral lower extremities. Strength: The patient demonstrates 4/5 gross bilateral lower extremity strength. Transfers: The patient requires contact guard assist x1 for sit to stand transfer from edge of bed. Balance: The patient was able to stand with narrow base of support x30 seconds with eyes open. The patient was able to withstand moderate perturbations while standing with narrow base of support with eyes open. The patient stood for approximately 10 seconds with contact guard assist x1 with eyes closed with narrow base of support. The patient was unable to stand on one leg for more than two seconds on either lower extremity. The patient was able to turn in a soboba with continuous steps. Ambulation: The patient's gait was analyzed. The patient tended to demonstrate lateral sway to the right. The patient has a mildly unsteady gait pattern and the therapist recommends use of walker at this time. ASSESSMENT: The patient is a 72-year-old female that presents with weakness and unsteady gait. The patient would benefit from skilled therapy in order to improve her functional mobility. The patient's prognosis for therapy is good. Problem List: Decreased functional mobility Short-Term Goals: To be met by discharge from inpatient: Patient will be able to ascend and descend one flight of stairs independently. Patient will be able to ambulate 300 feet independently. Patient will be able to tolerate 15 minutes of activity. Long-Term Goals: To be met following discharge from inpatient: Patient may benefit from outpatient physical therapy but ultimately will be able to return home per prior level of function. TREATMENT PLAN: Patient will be seen B.I.D during the week and one time per day over the weekend as an inpatient for therapeutic exercise, functional activity, neuromuscular reeducation, and gait training. INITIAL TREATMENT: Treatment today consisted of the initial evaluation. The patient was instructed to ambulate x300 feet with contact guard assist x1. The patient was returned to her room with bed alarm activated and call light within reach. EDWARD
[2018-05-30 16:11] LABS: BLOOD UREA NITROGEN 23 mg/dL (7-22)
--- NOTE | 2018-05-30 16:25 | OTI REPORT ---
Thank you for the referral of Beryl Song. She was seen on 05/29/18 for an occupational therapy swallow evaluation. SUBJECTIVE: The patient is a 72-year-old female. The patient was in bed upon the therapist's arrival. They are deciding whether this was a TIA vs. a low blood sugar episode. When the patient came in she had some speech difficulties and was feeling weak, but she says most of that has resolved at this time. PAST MEDICAL HISTORY: Past medical history can be found in the patient's medical record. OBJECTIVE FINDINGS: Pre-Swallow Assessment: Alertness and responsiveness: The patient was alert and responsive. Reliable responses: The patient did have reliable responses; however, there were times that she demonstrated a little bit of memory issues or confusion. Facial symmetry: The patient demonstrated facial symmetry. She had a good smile, lateralization, was able to close and open lisp, and pucker lips. Cough: The patient's cough was within normal limits. Nutrition and intake method over the last 24-hours: The patient is on a regular diet with thin liquids. Oxygen: The patient is not on oxygen. Dentition: The patient has her real teeth minus some partials in the top back. Voice quality: WNL Sensation: The patient has normal sensation on both sides. Head control/Jaw mobility: The patient has decent head control and jaw mobility. Lip closure: The patient has good lip closure; there is no drooling. Gag reflex: The patient has an intact gag reflex. Feeding Assessment: The patient had an intact automatic swallow. Laryngeal elevation was intact. The patient was assessed with pureed, mechanical soft, and regular food textures which included soup, applesauce, a fried pickle, and an egg salad sandwich with bread. The patient had good bolus control. Swallow transit time was within normal limits with all food textures. Number of swallows per bolus was 1-2. Laryngeal elevation was within normal limits. The patient was negative for coughing or any external signs of aspiration. Voice post feed was the same as before. There was no pocketing or drooling. The patient is able to take medications with water. She is able to self feed herself. Position during assessment: The patient was sitting up in bed at an 80 degree angle. She did not demonstrate any choking and was able to protect her airway. Swallow appears to be efficient for adequate PO intake. Dr. Dupont and the patient's nurse were informed of the results. RECOMMENDATIONS: 1. The patient may remain on a regular diet with thin liquids. 2. Medication may be taken whole with thin liquid unless the patient has difficulty with this. 3. The patient should sit upright for all meals. The patient did subjectively start stating during the assessment that she did have a little bit of reflux. We discussed sitting up for 30-60 minutes after each meal and not laying down to decrease the chances of the reflux. 4. A video fluoroscopy is not indicated at this time. SWALLOW GOALS: Patient will eat 100% of selected diet without external signs of aspiration 100% of the time. TREATMENT PLAN: Patient will be seen for swallow evaluation only. No further therapy is indicated. INITIAL TREATMENT: Treatment today consisted of the swallow evaluation only. EDWARD
--- NOTE | 2018-05-30 16:32 | OTI REPORT ---
Thank you for the referral of Beryl Song. She was seen on 05/29/18 for an occupational therapy inpatient evaluation. SUBJECTIVE: The patient is a 72-year-old female who reports that she lives at home with her . Her does have Dementia/Alzheimer's and that is very stressful for her. The patient has had Type I Diabetes for the last 10 years and does take Insulin. The patient reports that she did fall and hit her face and the back of her right knee slightly hurts. Prior to admission the patient was independent with all of her ADLs including dressing self and self care tasks. The patient does drive and mainly takes care of her . PAST MEDICAL HISTORY: Past medical history can be found in the patient's medical record. OBJECTIVE FINDINGS: Bed mobility: The patient was able to come from supine to sit independently. Range of motion: While sitting edge of bed the patient had range of motion within functional limits of bilateral upper extremities. Strength: Strength for shoulder flexion was 4/5, abduction was 4/5, elbow flexion/extension was 4/5, and wrist flexion/extension was 4/5. The patient states she has arthritis in bilateral hands. Sometimes she has some fine motor difficulties, but for the most part she does well. Activities of daily living: The patient does struggle a little bit with donning her socks but can do it. The patient was able to don and doff socks independently. She was able to bend over and complete this task. The patient was independent with toilet hygiene and independent with standing tasks while completing hygiene activities at sink. Transfers: The patient was able to transfer from sit to stand independently. The patient completed a toilet transfer with contact guard assist. She was slightly wobbly when walking but was able to keep her balance. ASSESSMENT: Problem List: Slight balance difficulties Possible cognitive deficits Generalized weakness Decreased endurance Short-Term Goals: To be met by discharge from inpatient: Patient will be able to dress self independently including set up. Patient will increase upper extremity strength to 4+/5. Patient will be independent with home exercise program. Long-Term Goals: To be met following discharge from inpatient: Patient will be discharged to home, demonstrating safety and independence with all ADLs and functional tasks. TREATMENT PLAN: Patient will be seen one more time in the morning. If all of her tests are negative she may be discharged to home. INITIAL TREATMENT: Treatment today consisted of the initial evaluation activities only. EDWARD
--- NOTE | 2018-05-30 16:41 | OT AM DAY ---
Diagnosis : TIA vs. Hypoglycemia AM - Occupational Therapy S: The patient states she is feeling pretty good overall. O: The patient was able to come from supine to sit independently. She was able to don her robe and her socks independently. The patient completed hygiene activities at the sink x5 minutes including brushing teeth, washing face, and combing hair with stand by assist. Downstairs in therapy the patient was able to complete 8 minutes on the UBE. She then completed a home exercise program with red theraband for horizontal abduction, diagonals bilaterally, and biceps and triceps x15. A: The patient is doing well. Physically she is demonstrating independence with ADLs and strength; however, her endurance is fair. If she is still here this afternoon she would benefit from energy conservation techniques. The patient may benefit from outpatient physical therapy as her legs seem to give her more trouble than her upper extremities. P: Continue seeing patient BID during the week and one time per day over the weekend until discharge. MTDD
[2018-05-30] MEDS ORDERED: LISINOPRIL 20 MG TABLET PO SCH (21:00)
== END 2018-05-30 16:39 | disposition home or self-care (01) ==
LOC: ER 07:14 → MED/SURG 07:14
PROVIDERS: ADMIT Family Medicine; ATTEND Family Medicine

== ENCOUNTER 2018-11-05 14:19 | Inpatient (IN) ==
[2018-11-05] MEDS ORDERED: Sodium Chloride 0.9% 1,000 ML PRIMARY IV ONE ×2 (14:46→19:15)
[2018-11-05 15:33] LABS: BASOPHILS # (AUTO) 0.06 10*3/UL; BASOPHILS % (AUTO) 0.4 % (0-1); EOSINOPHILS # (AUTO) 0.01 10*3/UL; EOSINOPHILS % (AUTO) 0.1 % (0-8); Hemoglobin [HGB] 14.2 g/dL (12.0-16.0); LYMPHOCYTES # (AUTO) 1.32 10*3/uL; MEAN CORPUSCULAR HGB CONC 32.3 g/dL (33-37); MEAN CORPUSCULAR VOLUME 89.1 FL (81-99); MEAN PLATELET VOLUME 12.6 FL (7.4-12.2); MONOCYTES # (AUTO) 0.57 10*3/UL (0.3-0.8); MONOCYTES % (AUTO) 4.1 % (5-15); NEUTROPHILS # (AUTO) 11.57 10*3/UL; NEUTROPHILS % (AUTO) 83.4 % (50-80); RED BLOOD COUNT 4.94 10^6/uL (4.20-5.40)
[2018-11-05 15:34] LABS: PLATELET MORPHOLOGY COMMENT NORMAL MORPHOLOGY (NORM); RBC MORPHOLOGY COMMENT NORMAL MORPHOLOGY (NORM); WBC MORPHOLOGY COMMENT NORMAL MORPHOLOGY (NORM)
[2018-11-05 15:45] LABS: BLOOD UREA NITROGEN 33 mg/dL (7-22); BUN/CREATININE RATIO 23.57 (6-20); SERUM ALBUMIN 4.3 g/dL (3.5-4.8)
[2018-11-05 15:50] LABS: VENOUS PH 7.23 (7.32-7.42)
--- NOTE | 2018-11-05 16:09 | DI ---
XR CXR 2VW PA/LAT,11/05/2018 2:46 PM: Clinical History: Dyspnea Previous Exam: None at this facility. Findings: PA and lateral views of the chest are obtained, and demonstrate clear lungs. The cardiomediastinum an d bony thorax are unremarkable. There is mild subsegmental atelectasis within the left lung base near the costophrenic angle. Impression: Mild subsegmental atelectasis in the lung base otherwise unremarkable.
[2018-11-05] MEDS ORDERED: LIDOCAINE HCL 2 % 10 ML JELLY URO-JECT TOPICAL PRN (16:20)
[2018-11-05] MEDS ORDERED: DEXTROSE 31 GM GEL PO PRN (16:22)
[2018-11-05] MEDS ORDERED: Glucagon Inj Vial 1 MG/ML VIAL IM PRN (16:22)
[2018-11-05] MEDS ORDERED: DEXTROSE 50%-WATER SYRINGE 50 ML SYRINGE IVP PRN (16:22)
[2018-11-05 16:25] LABS: BILIRUBIN,URINE NEGATIVE (NEG); CLARITY,URINE CLEAR (CLEAR); COLOR,URINE YELLOW (Y); GLUCOSE, URINE (UA) 500 mg/dL (NEG); OCCULT BLOOD,URINE Trace-lysed (NEG); PROTEIN,URINE NEGATIVE (NEG); UROBILINOGEN,URINE 0.2 EU/dL (0.2)
[2018-11-05 16:26] LABS: URINE SAMPLE TYPE CATH SPECIMEN
[2018-11-05] MEDS ORDERED: INSULIN REGULAR, HUMAN 100 UNIT/1 ML - 3 ML IV ONE (16:26)
--- NOTE | 2018-11-05 16:46 | EKG ---
[address] [address] Measurements Intervals [place] Rate: 105 P: 63 [place]: 165 QRS: 10 QRSD: 142 T: 11 QT: 370 QTc: 431 Interpretive Statements SINUS TACHYCARDIA RIGHT BUNDLE BRANCH BLOCK Compared to ECG 05/29/2018 07:41:41 Sinus rhythm no longer present Electronically Signed On 11-05-18 17:22:04 MDT by Royer Christine [email or web address]
[2018-11-05] MEDS: Insulin Regular Inj 100 UNIT in Sodium Chloride 0.9% 99 ML IV SCH (16:55)
--- NOTE | 2018-11-05 18:03 | PDOC ---
HPI - History of Present Illness Date of Service: 11/05/18 Time of Service: 18:30 Chief Complaint: Confusion and shortness of breath about one day duration History of Present Illness: This is a 72 years old female with medical history significant for history of hypertension, diabetes, hyperlipidemia, recent admission to [facility] for colitis, was brought to the hospital for evaluation because of confusion, and shortness of breath, evaluation in the ER revealed that she had a blood sugar more than 800, she had acute renal failure, and ketoacidosis, her potassium was also elevated to 7.7, she received IV fluid, IV insulin and was admitted. Her potassium did come down from 7.7-7.1. The patient herself said she can't think clearly, she couldn't tell me whether she checked her blood sugar today. She said she doesn't remember. She didn't eat today. She said she is nauseated but didn't vomit. Denied chest pain, shortness of breath, vomiting. It was the [id number] that reported the patient looked short of breath. The [id number] did say that she seems also to be somewhat confused yesterday. She was prescribed antibiotics according to her but she doesn't know the name and that was to treat the colitis. Past Medical History Medical History: 1. Hypertension. 2. Diabetes on insulin pump. 3. Hypercholesteremia. 4. Depression. 5. Osteoporosis. 6. History of previous right humeral neck fracture after a fall. 7. Nonspecific colitis in October [address] [facility] Surgical History: 1. Hysterectomy. 2. History of previous wrist surgery. 3. Left knee replacement Pertinent Family History: History of coronary artery disease in her mother, her sister had a stroke. Past Social History: Doesn't smoke, doesn't drink, no drugs. Lives with her who has the beginning of Alzheimer's. Patient has 4 children, but her daughter is unfortunately an alcoholic. She is caring for her grandchildren. Tobacco Use: Never Smoker In the Past 12 Months, Have Used or Abuse Any of the Following Substance: None Medication / Allergies Home Medications: Home Medications Medication Instructions Recorded Confirmed Multivitamins W-Minerals/Lut 1 ea PO DAILY #30 12/06/11/05/18 [Centrum Silver Tablet] lorazepam 0.5 mg tablet 0.5 mg PO BID PRN #60 tab 04/26/18 11/05/18 Aspirin/Acetaminophen/Caffeine 1 ea PO DAILY 05/29/18 11/05/18 [Excedrin Extra Strength Caplet] amlodipine 10 mg tablet 10 mg PO QD #90 tab 08/02/18 11/05/18 atorvastatin 40 mg tablet 40 mg PO QHS #90 tab 08/02/18 11/05/18 clopidogrel 75 mg tablet 75 mg PO DAILY #90 tab 08/02/18 11/05/18 gabapentin 300 mg capsule 300 mg PO QHS #90 cap 08/02/18 11/05/18 lisinopril 20 mg tablet 20 mg PO BID #180 tab 08/02/18 11/05/18 trazodone 50 mg tablet 50 mg PO QHS PRN #90 tab 08/02/18 11/05/18 venlafaxine ER 150 mg 150 mg PO QD #90 cap 08/02/18 11/05/18 capsule,extended release 24 hr insulin aspart U- 100 100 unit/mL 60 unit SUBCUT QD #4 vial 08/29/18 11/05/18 subcutaneous solution Allergies/Adverse Reactions: Allergies Allergy/AdvReac Type Severity Reaction Status Date / Time codeine [Codeine] AdvReac Mild NAUSEA Verified 11/05/18 19:05 Review of Systems - Review of Systems All Systems: Reviewed & No Additional Complaints Except as Stated Exam - Vitals Vital Signs: Vital Signs Temperature 97.4 F Temperature Source Temporal Artery Scan Pulse Rate [Pulse Oximeter 107 Right] Respiratory Rate 20 Blood Pressure [Right Arm] 184/91 Pulse Ox 99 Oxygen Delivery Method Room Air Height 5 ft 2 in Weight 175 lb - General Additional General Exam Details: Seem to be dehydrated, somewhat confused - Head Head Exam: Normal Inspection - Eye Eye Exam: POSITIVE: Normal Appearance - ENT ENT Exam: POSITIVE: Mucous Membranes Dry - Neck Neck Exam: Normal Inspection - Respiratory Respiratory Exam: POSITIVE: Clear to Auscultation - Bilaterally - Cardiovascular Cardiovascular Exam: POSITIVE: RRR - GI/Abdominal GI/Abdominal Exam: POSITIVE: Normal Bowel Sounds, Non Tender, Non Distended, Soft, No Organomegaly - Rectal Rectal Exam: POSITIVE: Deferred - External Exam: POSITIVE: Deferred - Extremities Extremities Exam: POSITIVE: Normal Inspection - Back Back Exam: POSITIVE: Normal Inspection - Neurological Neurological Exam: POSITIVE: Alert, CN II-XII Intact, No Facial Droop, Speech Intact / Clear, Moves All Extremities Equally Additional Neurological Exam Details: She knew the month and the year didn't know the daty. She knows that she is in the hospital. However she struggles remembering her medical history. And also the events of the last few days. - Psychiatric Psychiatric Exam: POSITIVE: Normal Affect Results - Labs CBC and BMP: 11/05/18 15:10 11/05/18 20:09 - EKG Data -: EKG Interpreted by Me Rate: Tachycardia EKG Shows Normal: Sinus Rhythm - EKG Data When Compared to Previous EKG(s) There Are: Other (EKG showed sinus tachycardia with right bundle branch block) - Imaging Status: Report Reviewed by Me (Chest X ray showed Mild subsegmental atelectasis in the lung base otherwise unremarkable.) Assessment and Plan - Patient Problems (1) DKA (diabetic ketoacidoses) Current Visit: Yes Status: Acute Comment: She is on insulin pump however the medication list from the discharge paper from [facility] put her on NovoLog and Lantus now I am not sure whether she was supposed to be on those instead of the pump. Regardless I think will continue with hydration, repeat her chemistry, continue with IV drip insulin. Continue checking her blood sugar hourly. Code(s): E11.10 - Type 2 diabetes mellitus with ketoacidosis without coma (2) Hyperkalemia Current Visit: Yes Status: Acute Comment: She is on potassium based on the discharge medication form [facility] but in addition she has DKA and acute renal failure maybe that's responsible for the elevation in her potassium. We'll continue with fluid and insulin drip and I think that would help to lower her potassium. She is making urine. There is no evidence of changes on the EKG. Code(s): E87.5 - Hyperkalemia (3) Hypertension Current Visit: No Status: Acute Comment: She is on lisinopril and amlodipine and she is not sure whether she took her medication today or not I think we'll see what her blood pressure tomorrow and then decide about when to restart her medications. Code(s): I10 - Essential (primary) hypertension Qualifiers: Hypertension type: essential hypertension Qualified Code(s): I10 - Essential (primary) hypertension (4) Hypercholesterolemia Current Visit: No Status: Chronic Comment: We'll hold Lipitor for now. Code(s): E78.0 - Pure hypercholesterolemia (5) Depression Current Visit: No Status: Chronic Comment: She is on venlafaxine and trazodone I think we'll see how things are tomorrow and decide when to restart those. Code(s): F32.9 - Major depressive disorder, single episode, unspecified Qualifiers: Depression Type: other depression Qualified Code(s): F32.89 - Other specified depressive episodes (6) Acute renal failure Current Visit: Yes Status: Acute Comment: Likely secondary to dehydration with you to monitor her kidney function. Elevated lactic acid also probably secondary to dehydration will repeat it later on. Code(s): N17.9 - Acute kidney failure, unspecified
[2018-11-05] MEDS ORDERED: CALCIUM CARBONATE 500 MG (TUMS) CHEWABLE TABLET PO PRN (18:51)
[2018-11-05] MEDS ORDERED: DOCUSATE 100 MG CAPSULE PO PRN (18:51)
[2018-11-05] MEDS ORDERED: ONDANSETRON 4 MG/2 ML VIAL IVP PRN (18:51)
[2018-11-05] MEDS ORDERED: LIDOCAINE W/ SODIUM BICARB 0.5 ML SYR SUBD PRN (18:51)
[2018-11-05] MEDS ORDERED: ACETAMINOPHEN 325 MG TABLET PO PRN (18:51)
[2018-11-05] MEDS: Sodium Chloride 0.9% 1,000 ML PRIMARY IV SCH (19:41)
[2018-11-05 20:27] LABS: BLOOD UREA NITROGEN 30 mg/dL (7-22)
[2018-11-05 23:15] LABS: BLOOD UREA NITROGEN 31 mg/dL (7-22)
[2018-11-06] MEDS: Sodium Chloride 0.9% 1,000 ML PRIMARY IV SCH ×3 (00:39→20:21)
[2018-11-06 02:05] LABS: BLOOD UREA NITROGEN 28 mg/dL (7-22); SERUM ALBUMIN 3.2 g/dL (3.5-4.8)
[2018-11-06] MEDS: Insulin Regular Inj 100 UNIT in Sodium Chloride 0.9% 99 ML IV SCH (04:35)
[2018-11-06] MEDS ORDERED: D5-NS 1,000 ML PRIMARY IV SCH (05:15)
[2018-11-06 06:11] LABS: BASOPHILS # (AUTO) 0.03 10*3/UL; BASOPHILS % (AUTO) 0.2 % (0-1); EOSINOPHILS # (AUTO) 0.29 10*3/UL; EOSINOPHILS % (AUTO) 1.7 % (0-8); Hematocrit [HCT] 39.1 % (37.0-47.0); Hemoglobin [HGB] 13.2 g/dL (12.0-16.0); MEAN CORPUSCULAR HGB CONC 33.8 g/dL (33-37); MEAN CORPUSCULAR VOLUME 86.7 FL (81-99); MEAN PLATELET VOLUME 11.2 FL (7.4-12.2); MONOCYTES # (AUTO) 1.38 10*3/UL (0.3-0.8); MONOCYTES % (AUTO) 8.1 % (5-15); NEUTROPHILS # (AUTO) 11.87 10*3/UL; NEUTROPHILS % (AUTO) 69.5 % (50-80); RED BLOOD COUNT 4.51 10^6/uL (4.20-5.40)
[2018-11-06 06:16] LABS: PLATELET MORPHOLOGY COMMENT NORMAL MORPHOLOGY (NORM); RBC MORPHOLOGY COMMENT NORMAL MORPHOLOGY (NORM); WBC MORPHOLOGY COMMENT NORMAL MORPHOLOGY (NORM)
[2018-11-06 06:27] LABS: BLOOD UREA NITROGEN 26 mg/dL (7-22); BUN/CREATININE RATIO 28.88 (6-20); SERUM ALBUMIN 3.4 g/dL (3.5-4.8)
[2018-11-06] MEDS ORDERED: Insulin Glargine SoloStar Inj 100 UNIT/ML INSULN.PEN SUBCUT SCH (07:30)
--- NOTE | 2018-11-06 07:35 | PDOC(PROG) ---
Date of Service: 11/06/18 Time of Service: 07:30 Interval History: Subjective Feels better she said compared to when she came in. Denying symptoms now. But we discovered that actually she is not on the insulin pump now. She said her pump is not working according to her. So she's been off the pump for 2 months. She is on NovoLog she said she take 10 units 4 times a day. However she struggled explaining to me what she would do in case her blood sugar is elevated. She also struggled to explain to me her previous pump setting. She could not describe actually what was her setting or what was the regimen that she used to be while on the pump. She was at one point on Lantus and then she said she could not afford it. Her auto garage attendant she told me doesn't know that she is on the NovoLog shots only now. Objective : Data - Labs CBC and BMP: 11/06/18 06:00 11/06/18 06:00 Objective : Exam - General General Appearance: No Acute Distress, Cooperative - Head Head Exam: Normal Inspection - Eye Eye Exam: Normal Appearance - ENT ENT Exam: Normal Exam - Neck Neck Exam: Normal Inspection - Respiratory Respiratory Exam: Clear to Auscultation - Bilaterally - Cardiovascular Cardiovascular Exam: RRR - GI/Abdominal GI/Abdominal Exam: Normal Bowel Sounds, Non Tender, Non Distended, Soft, No Or ganomegaly - Rectal Rectal Exam: Deferred - External Exam: Deferred - Extremities Extremities Exam: Normal Inspection - Back Back Exam: Normal Inspection - Neurological Neurological Exam: Alert, CN II-XII Intact, No Facial Droop, Speech Intact / Clear, Moves All Extremities Equally - Psychiatric Psychiatric Exam: Normal Affect Assessment and Plan - Patient Problems (1) DKA (diabetic ketoacidoses) Current Visit: Yes Status: Acute Comment: She closed her gap now. Her numbers all improved. I think we can transition her to long-acting insulin and insulin sliding scale. However the issue would be costs what long-acting she can afford and it's not clear to me whether she can actually comprehend and do the instruction for sliding scale. We'll consult the dietitian. Will request MOCA evaluation. Code(s): E11.10 - Type 2 diabetes mellitus with ketoacidosis without coma (2) Hyperkalemia Current Visit: Yes Status: Acute Comment: Potassium much improved now. Code(s): E87.5 - Hyperkalemia (3) Hypertension Current Visit: No Status: Acute Comment: I think will restart her blood pressure medications as her blood pressure is getting higher. Code(s): I10 - Essential (primary) hypertension Qualifiers: Hypertension type: essential hypertension Qualified Code(s): I10 - Essential (primary) hypertension (4) Hypercholesterolemia Current Visit: No Status: Chronic Comment: We'll restart her medication Code(s): E78.0 - Pure hypercholesterolemia (5) Depression Current Visit: No Status: Chronic Comment: We'll restart her medication Code(s): F32.9 - Major depressive disorder, single episode, unspecified Qualifiers: Depression Type: other depression Qualified Code(s): F32.89 - Other specified depressive episodes (6) Acute renal failure Current Visit: Yes Status: Acute Comment: This is resolved. Code(s): N17.9 - Acute kidney failure, unspecified
--- NOTE | 2018-11-06 08:09 | PDOC ---
General Adult HPI - General Chief Complaint: Altered Mental Status Stated Complaint: fatigue, no appetite, "extreme thirst ". Date Seen by Provider: 11/05/18 Time Seen by Provider: 14:30 Source: POSITIVE: Patient, Old records Exam Limitations: POSITIVE: No limitations Nurse's Notes Reviewed & Considered: Yes - History of Present Illness Initial Comment: The patient is a 72-year-old female. Patient presents to the emergency room by POV stating that for the last 3 days she's been very fatigued and anorexic. She states that she is "been very thirsty ". Patient has a history of diabetes mellitus for which she is supposed be taking insulin, but acknowledges that she is not very hinduism in taking this. She was recently treated at [facility] for colitis and was discharged 5 days ago. She denies any head chest or abdominal pain. No vomiting. She states she has one or 2 loose bowel movements daily and she is thinks that she might have some bright red blood in her stool. She complains of some shortness of breath. She has an insulin pump and states that her blood sugars have been "around 160 ". She states she is on NovoLog insulin. No fevers or chills. No cough. Have you received a tetanus shot in the past 10 years?: Unknown Body Location Affected: REPORTS: Other (Weakness, nausea, "extreme thirst ") Timing: REPORTS: Improved Duration: >24 hours (Approximately 3 days) Severity: Moderate Quality: REPORTS: Other (Patient denies any pain anywhere) Context: REPORTS: None Modifying Factors: improves with: Nothing Similar Symptoms Previously: No Recent Care Received: REPORTS: Recently Seen, Treated by , Hospitalized (4 colitis at [facility] [place]; discharge 5 days ago) Any Prior Injuries Related to Current Complaint?: No - Patient Home Medications Home Medications: Home Medications Multivitamins W-Minerals/Lut [Centrum Silver Tablet] 1 ea PO DAILY #30 12/07/11 lorazepam 0.5 mg tablet 0.5 mg PO BID PRN #60 tab 04/26/18 Aspirin/Acetaminophen/Caffeine [Excedrin Extra Strength Caplet] 1 ea PO DAILY 05/29/18 amlodipine 10 mg tablet 10 mg PO QD #90 tab 08/02/18 atorvastatin 40 mg tablet 40 mg PO QHS #90 tab 08/02/18 clopidogrel 75 mg tablet 75 mg PO DAILY #90 tab 08/02/18 gabapentin 300 mg capsule 300 mg PO QHS #90 cap 08/02/18 lisinopril 20 mg tablet 20 mg PO BID #180 tab 08/02/18 trazodone 50 mg tablet 50 mg PO QHS PRN #90 tab 08/02/18 venlafaxine ER 150 mg capsule,extended release 24 hr 150 mg PO QD #90 cap 08/02/18 insulin aspart U- 100 100 unit/mL subcutaneous solution 60 unit SUBCUT QD #4 vial 08/29/18 - Patient Allergies Allergies/Adverse Reactions: Allergies Allergy/AdvReac Type Severity Reaction Status Date / Time codeine [Codeine] AdvReac Mild NAUSEA Verified 11/06/18 06:56 Past Medical History - heen HEENT History: Cataracts Additional HEENT History: Wears glasses Cardiovascular History: Hypertension, Hyperlipidemia Respiratory History: Snoring Gastrointestinal History: Colitis Additional Gastrointestinal History: "ulcers years and years ago" Genitourinary History: Denies History Additional Genitourinary History: 03/07/17 has had frequency since smith cath 01/30/17. today leola blood Endocrine History: Type 1 Diabetes Additional Endocrine History: 08/30/16 PT IN THIS AM FOR PRE OP LABS. URINE GLUCOSE RESULT OF >[address] HANEY. I SPOKE WITH DR HANEY WHO DIDNT FEEL THIS WAS OF CONCERN AND TO GO BY THE BLOOD GLUCOSE OF 64. WILL DISCUSS THIS WITH DR ROCA IN THE MORNING FOR FURTHER DIRECTION. SB Musculoskeletal History: Arthritis, Osteoporosis Prosthesis or Implant: Yes (Right wrist, left knee) Additional Musculoskeletal History: HX OF RIGHT WRIST FX, bilat arm fx, left total knee Neurological History: Denies History Blood Disorders: Denies History Psychiatric History: Depression, Anxiety Disorders History of Sexually Transmitted Diseases: No Female Reproductive History: Hysterectomy Obstetrical History: Denies History Cancer History: Denies History In Past Year Been Physically Harmed or Verbally Threatened: No History of MDRO: No History of Other Communicable Diseases: No Tobacco Use: Never Smoker Alcohol Use: Rarely In the Past 12 Months, Have Used or Abuse Any Substance: None Previous Surgical History: Yes Type / Date of Surgery: HYST/ BILAT OOPHORECTOMY/ APPY/ COLONOSCOPY/ ORIF RIGHT WRIST/ TONSILLECTOMY/ LEFT TOTAL KNEE Anesthesia Reactions: No Malignant Hyperthermia: No Significant Family History: Heart disease, Renal disease Additional Family History: R/A Past Medical History Reviewed: Reviewed - No Changes ROS - Limitations ROS Limitations: No Limitations Constitution: REPORTS: Weakness, Other ("Extreme thirst ") Cardiovascular: REPORTS: Denies Cardiac Symptoms Respiratory: REPORTS: Shortness Of Breath Neurological: REPORTS: Denies Neuro Symptoms Gastrointestinal: REPORTS: Denies GI Symptoms Endocrine: REPORTS: Denies Symptoms Musculoskeletal: REPORTS: Denies MS Symptoms Genitourinary: REPORTS: Denies Symptoms Eyes: REPORTS: Denies Symptoms ENT: REPORTS: Denies Symptoms Skin: REPORTS: Denies Skin Symptoms Lympathic: REPORTS: Denies Lympathic Symptoms Immunologic: POSITIVE: Denies Symptoms Psychiatric: POSITIVE: Denies Psych Symptoms General Adult Exam - General Appearance General Appearance: POSITIVE: Alert, Cooperative, No Acute Distress, No Evidence of Trauma - HEENT HEENT: POSITIVE: Head Inspection Nml, Eyes Inspection Nml, Ears Inspection Nml, Nose Inspection Nml, Oral/Dental Inspect. Nml, Pharynx Inspect. Nml, PERRL, EOMI - Pupils Pupil Size: 3 mm: Bilateral (PERRLA) - Neck Neck: POSITIVE: Normal Inspection, Thyroid Normal - Respiratory Respiratory: POSITIVE: No Respiratory Distress, Breath Sounds Normal, Chest Non- Tender - Cardiovascular Cardiovascular: POSITIVE: Regular Rate & Rhythm, No Murmur, No Gallop, PMI Normal Peripheral Pulses: Radial (R): 2+, Radial (L): 2+ - Abdomen Abdomen: Soft: (All Quadrants), Normal Bowel Sounds: (All Quadrants), Denies Te nderness: (All Quadrants), No Splenomegaly: (All Quadrants), No Hepatomegaly: (All Quadrants), No Guarding: (All Quadrants), No Rebound: (All Quadrants), No Palpable Pulse: (All Quadrants), No Palpabale Mass: (All Quadrants), No Distention: (All Quadrants), No Rigidity: (All Quadrants) - Back Back: POSITIVE: Normal Inspection - Skin Skin: POSITIVE: Normal Color, Warm, Dry, No Rash - Extremities Extremity: Non-Tender: (All Extremities), Normal ROM: (All Extremities), Normal Inspection: (All Extremities) - Neurological / Psychological Neurological: POSITIVE: Affect Apporpriate, Oriented X3, bi data modeler Normal As Tested, Motor Normal, Sensation Normal General Adult Progress - Results Reviewed by me Xrays/CTs/US Reviewed by me: Yes Discussed with Radiologist: Yes Radiology Findings: Chest x-ray shows some subsegmental atelectasis Lab Results Reviewed by Me: Yes (potassium 7.7; glucose 856, lactic acid 2.2) Lab Results:: Laboratory Results 11/05/18 11/05/18 11/05/18 15:07 15:10 15:10 WBC 13.87 H RBC 4.94 Hgb 14.2 Hct 44.0 MCV 89.1 MCH 28.7 MCHC 32.3 L RDW Std Deviation 44.0 RDW Coeff of Fernando 14.0 Plt Count 348 MPV 12.6 H Immature Gran % (Auto) 2.5 Neut % (Auto) 83.4 H Lymph % (Auto) 9.5 L [place] % (Auto) 4.1 L Eos % (Auto) 0.1 Baso % (Auto) 0.4 Immature Gran # (Auto) 0.34 Neut # (Auto) 11.57 Lymph # (Auto) 1.32 [place] # (Auto) 0.57 Eos # (Auto) 0.01 Baso # (Auto) 0.06 WBC Morphology Comment Normal morphology Plt Morphology Comment Normal morphology RBC Morph Comment Normal morphology PT 11.1 INR 0.97 D-Dimer 999 H VBG pH 7.23 L VBG pCO2 24 L VBG HCO3 10 L VBG Base Excess -18 L Sodium Potassium Chloride Carbon Dioxide Anion Gap BUN Creatinine Estimated GFR BUN/Creatinine Ratio Glucose Calculated Osmolality Lactic Acid Calcium Magnesium Total Bilirubin AST ALT Alkaline Phosphatase Total Creatine Kinase Troponin I C-Reactive Protein NT-Pro-B Natriuret Pep Total Protein Albumin Globulin Albumin/Globulin Ratio TSH Ur Collection Type Urine Color Urine Clarity Urine pH Ur Specific [place] Urine Protein Urine Glucose (UA) Urine Ketones Urine Occult Blood Urine Nitrate Urine Bilirubin Urine Urobilinogen Ur Leukocyte Esterase Ur Culture Indicated? 11/05/18 11/05/18 11/05/18 15:10 15:10 15:10 WBC RBC Hgb Hct MCV MCH MCHC RDW Std Deviation RDW Coeff of Fernando Plt Count MPV Immature Gran % (Auto) Neut % (Auto) Lymph % (Auto) [place] % (Auto) Eos % (Auto) Baso % (Auto) Immature Gran # (Auto) Neut # (Auto) Lymph # (Auto) [place] # (Auto) Eos # (Auto) Baso # (Auto) WBC Morphology Comment Plt Morphology Comment RBC Morph Comment PT INR D-Dimer VBG pH VBG pCO2 VBG HCO3 VBG Base Excess Sodium 131 L D Potassium 7.7 H* D Chloride 93 L Carbon Dioxide 7 L Anion Gap 31 H BUN 33 H Creatinine 1.4 H Estimated GFR Compressed Gas Tester BUN/Creatinine Ratio 23.57 H Glucose 856 H* Calculated Osmolality 320.0 H Lactic Acid 2.2 H Calcium 9.8 Magnesium 2.3 Total Bilirubin 0.4 AST 31 ALT 26 Alkaline Phosphatase 190 H Total Creatine Kinase 70 Troponin I 0.016 C-Reactive Protein 1.2 H NT-Pro-B Natriuret Pep 370 H Total Protein 7.3 Albumin 4.3 Globulin 3.0 Albumin/Globulin Ratio 1.40 TSH Ur Collection Type Urine Color Urine Clarity Urine pH Ur Specific [place] Urine Protein Urine Glucose (UA) Urine Ketones Urine Occult Blood Urine Nitrate Urine Bilirubin Urine Urobilinogen Ur Leukocyte Esterase Ur Culture Indicated? 11/05/18 11/05/18 11/05/18 15:10 16:10 16:29 WBC RBC Hgb Hct MCV MCH MCHC RDW Std Deviation RDW Coeff of Fernando Plt Count MPV Immature Gran % (Auto) Neut % (Auto) Lymph % (Auto) [place] % (Auto) Eos % (Auto) Baso % (Auto) Immature Gran # (Auto) Neut # (Auto) Lymph # (Auto) [place] # (Auto) Eos # (Auto) Baso # (Auto) WBC Morphology Comment Plt Morphology Comment RBC Morph Comment PT INR D-Dimer VBG pH VBG pCO2 VBG HCO3 VBG Base Excess Sodium Potassium 7.1 H* Chloride Carbon Dioxide Anion Gap BUN Creatinine Estimated GFR BUN/Creatinine Ratio Glucose Calculated Osmolality Lactic Acid Calcium Magnesium Total Bilirubin AST ALT Alkaline Phosphatase Total Creatine Kinase Troponin I C-Reactive Protein NT-Pro-B Natriuret Pep Total Protein Albumin Globulin Albumin/Globulin Ratio TSH 1.56 Ur Collection Type Cath specimen Urine Color Yellow Urine Clarity Clear Urine pH 5.0 Ur Specific [place] 1.010 Urine Protein Negative Urine Glucose (UA) 500 Urine Ketones >=160 Urine Occult Blood Trace-lysed H Urine Nitrate Negative Urine Bilirubin Negative Urine Urobilinogen 0.2 Ur Leukocyte Esterase Negative Ur Culture Indicated? Culture not set 11/05/18 17:27 WBC RBC Hgb Hct MCV MCH MCHC RDW Std Deviation RDW Coeff of Fernando Plt Count MPV Immature Gran % (Auto) Neut % (Auto) Lymph % (Auto) [place] % (Auto) Eos % (Auto) Baso % (Auto) Immature Gran # (Auto) Neut # (Auto) Lymph # (Auto) [place] # (Auto) Eos # (Auto) Baso # (Auto) WBC Morphology Comment Plt Morphology Comment RBC Morph Comment PT INR D-Dimer VBG pH VBG pCO2 VBG HCO3 VBG Base Excess Sodium Potassium Chloride Carbon Dioxide Anion Gap BUN Creatinine Estimated GFR BUN/Creatinine Ratio Glucose 729 H* Calculated Osmolality Lactic Acid Calcium Magnesium Total Bilirubin AST ALT Alkaline Phosphatase Total Creatine Kinase Troponin I C-Reactive Protein NT-Pro-B Natriuret Pep Total Protein Albumin Globulin Albumin/Globulin Ratio TSH Ur Collection Type Urine Color Urine Clarity Urine pH Ur Specific [place] Urine Protein Urine Glucose (UA) Urine Ketones Urine Occult Blood Urine Nitrate Urine Bilirubin Urine Urobilinogen Ur Leukocyte Esterase Ur Culture Indicated? CBC and BMP: 11/06/18 06:00 11/06/18 06:00 EKG Interpreted/Reviewed By Me:: Yes (normal; T waves not peaked) EKG Interpretation:: POSITIVE: Normal Sinus Rhythm, Normal Rate, Normal Intervals, Normal [place], Normal QRS, Normal ST/T - Patient's Progress Pain Medication Addressed: POSITIVE: Not Applicable School/Work Release Addressed: POSITIVE: Not Applicable Re-Examine Time: 16:15 Re-Examine Comment: Patient received a liter of normal saline. Patient has diabetic ketoacidosis with hyperkalemia. Patient given 10 units of regular insulin IV and then started on an infusion of insulin at 7 units per hour. Re-Examine Time:: 17:10 Re-Examine Comment: Potassium now down to 7.1. Case discussed with hospitalist on-call, Dr. Campbell. Dr. Campbell has admitted the patient for further evaluation and treatment. Patient has received about 1500 mL of normal saline so far. Patient feeling much better. Status: POSITIVE: Improved, Re-Examined Antibiotics Given: No - Consult Consult (If Yes, Name of Consulting MD & Time Called): Yes (Dr. Campbell, hospitalist, [id number]) Consulting MD will see pt:: POSITIVE[place] [facility] [place] Counseled: POSITIVE: Patient, Family, RE: Lab Results, RE: DX, RE: Need for F/U Patient Care Time - Estimated PCT Patient Care Time (In Minutes): 60 Vital Signs - VS Reviewed Vital Signs Reviewed: Yes Discharge Clinical Impression: Diabetic ketoacidosis, Hyperkalemia Discharge Disposition: Admit to Inpatient Condition: Stable Patient Problem(s) Reviewed: Yes Date Decision to Admit to Inpatient: 11/05/18 Time Decision to Admit to Inpatient: 17:10
[2018-11-06] MEDS: LISINOPRIL 20 MG TABLET PO SCH ×2 (08:53→20:21)
[2018-11-06] MEDS ORDERED: VENLAFAXINE HCL XR 150 MG CAP PO SCH (09:00)
[2018-11-06] MEDS: Insulin Lispro Flexpen 300 UNIT/3 ML INSULN.PEN SUBCUT SCH ×4 (10:12→20:25)
[2018-11-06] MEDS ORDERED: Insulin Glargine SoloStar Inj 100 UNIT/ML INSULN.PEN SUBCUT ONE (12:19)
[2018-11-06] MEDS ORDERED: Sodium Chloride 0.9% 1,000 ML PRIMARY IV ONE (12:24)
[2018-11-06 17:43] LABS: BLOOD UREA NITROGEN 17 mg/dL (7-22); BUN/CREATININE RATIO 24.28 (6-20)
[2018-11-06] MEDS ORDERED: ATORVASTATIN 40 MG TABLET PO SCH (21:00)
[2018-11-07] MEDS: Sodium Chloride 0.9% 1,000 ML PRIMARY IV SCH (04:35)
[2018-11-07 05:24] LABS: BASOPHILS # (AUTO) 0.02 10*3/UL; BASOPHILS % (AUTO) 0.3 % (0-1); EOSINOPHILS # (AUTO) 0.24 10*3/UL; EOSINOPHILS % (AUTO) 3.3 % (0-8); Hematocrit [HCT] 36.7 % (37.0-47.0); Hemoglobin [HGB] 11.9 g/dL (12.0-16.0); LYMPHOCYTES # (AUTO) 2.11 10*3/uL; MEAN CORPUSCULAR HGB CONC 32.4 g/dL (33-37); MEAN CORPUSCULAR VOLUME 87.8 FL (81-99); MEAN PLATELET VOLUME 11.9 FL (7.4-12.2); MONOCYTES % (AUTO) 8.1 % (5-15); NEUTROPHILS # (AUTO) 4.36 10*3/UL; RED BLOOD COUNT 4.18 10^6/uL (4.20-5.40)
[2018-11-07 05:31] LABS: PLATELET MORPHOLOGY COMMENT NORMAL MORPHOLOGY (NORM); RBC MORPHOLOGY COMMENT NORMAL MORPHOLOGY (NORM); WBC MORPHOLOGY COMMENT NORMAL MORPHOLOGY (NORM)
[2018-11-07 05:36] LABS: BLOOD UREA NITROGEN 11 mg/dL (7-22); BUN/CREATININE RATIO 18.33 (6-20)
[2018-11-07] MEDS: Insulin Lispro Flexpen 300 UNIT/3 ML INSULN.PEN SUBCUT SCH ×4 (06:55→20:45)
[2018-11-07] MEDS ORDERED: Insulin Glargine SoloStar Inj 100 UNIT/ML INSULN.PEN SUBCUT SCH ×2 (07:00)
--- NOTE | 2018-11-07 07:40 | PDOC(PROG) ---
Date of Service: 11/07/18 Time of Service: 07:40 Interval History: Subjective Feels a lot better according to her. No new symptoms. No diarrhea. Objective : Data - Labs CBC and BMP: 11/07/18 04:35 11/07/18 04:35 Objective : Exam - General General Appearance: No Acute Distress, Cooperative - Head Head Exam: Normal Inspection - Eye Eye Exam: Normal Appearance - ENT ENT Exam: Normal Exam - Neck Neck Exam: Normal Inspection - Respiratory Respiratory Exam: Clear to Auscultation - Bilaterally - Cardiovascular Cardiovascular Exam: RRR - GI/Abdominal GI/Abdominal Exam: Normal Bowel Sounds, Non Tender, Non Distended, Soft, No Organomegaly - Rectal Rectal Exam: Deferred - External Exam: Deferred - Extremities Extremities Exam: Normal Inspection - Back Back Exam: Normal Inspection - Neurological Neurological Exam: Alert, Oriented x 3, CN II-XII Intact, No Facial Droop, Speech Intact / Clear, Moves All Extremities Equally - Psychiatric Psychiatric Exam: Normal Affect - Integumentary Integumentary Exam: Normal Color Assessment and Plan - Patient Problems (1) DKA (diabetic ketoacidoses) Current Visit: Yes Status: Acute Comment: This is resolved. Blood sugar did go up after we stopped the IV insulin drip yesterday. Had to give her multiple injection of Humalog in addition to additional dose of Lantus. Today will give her 35 units of Lantus and continue sliding scale and will watch her. I'm not sure what the right regimen for her as she struggle in explaining what she should do to manage her blood sugar. I did ask the dietitian to see her. She's also concerned about cost. We'll see if we have samples. We'll take her out of the ICU. For DVT prophylaxis she is on SCDs boots. She had a recent colitis and there was some bleeding. Code(s): E11.10 - Type 2 diabetes mellitus with ketoacidosis without coma (2) Hyperkalemia Current Visit: Yes Status: Acute Comment: This is resolved. Will repeat her chemistry tomorrow. Code(s): E87.5 - Hyperkalemia (3) Hypertension Current Visit: No Status: Acute Comment: Same medication. spironolactone listed on her medication I'm not sure that she takes. But if she is on and she needs to be off because of hyperkalemia. Code(s): I10 - Essential (primary) hypertension Qualifiers: Hypertension type: essential hypertension Qualified Code(s): I10 - Essential (primary) hypertension (4) Hypercholesterolemia Current Visit: No Status: Chronic Comment: Same med Code(s): E78.0 - Pure hypercholesterolemia (5) Depression Current Visit: No Status: Chronic Comment: Same med Code(s): F32.9 - Major depressive disorder, single episode, unspecified Qualifiers: Depression Type: other depression Qualified Code(s): F32.89 - Other specified depressive episodes (6) Acute renal failure Current Visit: Yes Status: Acute Comment: This is resolved Code(s): N17.9 - Acute kidney failure, unspecified
[2018-11-07] MEDS ORDERED: LIDOCAINE W/ SODIUM BICARB 0.5 ML SYR SUBD PRN (08:02)
[2018-11-07] MEDS ORDERED: ONDANSETRON 4 MG/2 ML VIAL IVP PRN (08:02)
[2018-11-07] MEDS ORDERED: DEXTROSE 31 GM GEL PO PRN (08:02)
[2018-11-07] MEDS ORDERED: ACETAMINOPHEN 325 MG TABLET PO PRN (08:02)
[2018-11-07] MEDS ORDERED: CALCIUM CARBONATE 500 MG (TUMS) CHEWABLE TABLET PO PRN (08:02)
[2018-11-07] MEDS ORDERED: DEXTROSE 50%-WATER SYRINGE 50 ML SYRINGE IVP PRN (08:02)
[2018-11-07] MEDS ORDERED: DOCUSATE 100 MG CAPSULE PO PRN (08:02)
[2018-11-07] MEDS: VENLAFAXINE HCL XR 150 MG CAP PO SCH (09:04)
[2018-11-07] MEDS: LISINOPRIL 20 MG TABLET PO SCH ×2 (09:05→20:47)
[2018-11-07] MEDS ORDERED: Insulin Lispro Flexpen 300 UNIT/3 ML INSULN.PEN SUBCUT SCH (11:00)
[2018-11-07] MEDS ORDERED: Insulin Glargine SoloStar Inj 100 UNIT/ML INSULN.PEN SUBCUT ONE (11:27)
--- NOTE | 2018-11-07 11:44 | OT.PROG ---
Progress Note Progress Note: S: pt stated that she does feel better. She admitted that she does not remember about a week in a half prior to last few days. O: pt was seen in her room to participate in MOCA test: visuospatial/executive: 08/18 Namin/3 attention: 08/19 Language 06/16 abstraction: 04/17 delayed recall: 04/20 Orientation: 08/19 Total: A: pt did struggle with delayed recall portion of activities. Overall the MOCA results places her in the mild cognitive impairment category. P: continue per POC.
[2018-11-07] MEDS ORDERED: ATORVASTATIN 40 MG TABLET PO SCH (21:00)
[2018-11-08 05:26] LABS: BLOOD UREA NITROGEN 14 mg/dL (7-22); BUN/CREATININE RATIO 23.33 (6-20)
[2018-11-08] MEDS: Insulin Lispro Flexpen 300 UNIT/3 ML INSULN.PEN SUBCUT SCH ×4 (06:34→20:28)
[2018-11-08] MEDS ORDERED: Insulin Glargine SoloStar Inj 100 UNIT/ML INSULN.PEN SUBCUT SCH ×3 (07:00)
[2018-11-08] MEDS: LISINOPRIL 20 MG TABLET PO SCH ×2 (08:24→19:54)
[2018-11-08] MEDS: VENLAFAXINE HCL XR 150 MG CAP PO SCH (08:24)
[2018-11-08] MEDS ORDERED: Insulin Glargine SoloStar Inj 100 UNIT/ML INSULN.PEN SUBCUT ONE (12:32)
--- NOTE | 2018-11-08 16:45 | DCSUMMARY ---
Hospitalization Summary Admit Date: 11/05/2018 Discharge Date: 11/08/18 Primary Diagnosis:: diabetic ketoacidosis, resolved Secondary Diagnosis:: Poorly controlled diabetes mellitus type I, recent bloody diarrhea felt to be ischemic colitis based on CT scan and history, hypertension, hypercholesterolemia, history of hypoglycemic versus TIA episode. Mild cognitive impairment Hospital Course: Very pleasant 72-year-old female who has poorly controlled diabetes mellitus type I. She was admitted in the setting of diabetic ketoacidosis. She had been recently treated with antibiotics for what was felt to be an ischemic colitis on 10/26/2018. She was treated with one week of antibiotics. She did not have a colonoscopy at that time. Her diabetic ketoacidosis resolved very quickly with insulin drip, electrolyte replacement, fluids, and insulin. She was transitioned to subcutaneous insulin as there was confusion as to how the patient was using the pump. We were able to get dietary/staff educator, Nikkie involved to evaluate the pump. The patient had missed several low battery alerts. She had several alerts that were ignored entirely on the evaluation of the pump. The pump appears to be working okay, but her MOCA score was 23 out of 30 and she may be developing cognitive impairment. We will try very close monitoring on an outpatient basis for her diabetes management with this pump. A Bio-fire stool sample was ordered but is pending at this time. Given resolution of her DKA, and realization that a colonoscopy may be indicated, appropriate follow-ups were arranged with surgery, primary physician, and she has an endocrinology follow-up as well in the near future. She has no complaints of chest pain, shortness breath, nausea or vomiting. Complicated all of this is a very complex social situation in which her one of her 4 daughters is in residential and she is watching the 3 children intermittently when their father has to work. Her , has dementia, and so she takes care of him as well. I spoke to one daughter who recently moved back to [place], [place], that I think that the patient is bordering on being able to take care of this at home versus not. I spoke with case management to see if we could arrange a check on diabetes from the home nurse that comes and visits her . Assessment and Plan: 1. As per discharge assessments noted 2. Disposition: Patient is discharged home. 3. Condition on discharge, stable and improved. Complex social situation may put this patient at risk for readmission 4. Diet: regular diet 5. Activities: resume normal activities 6. Follow-Up: 1. Dr. Page next week 2. Dr. Quezada in the next few weeks 7. Medications at the Time of Discharge: Home Medications Medication Instructions Recorded Confirmed Multivitamins W-Minerals/Lut 1 ea PO DAILY #30 12/07/11 11/05/18 [Centrum Silver Tablet] amlodipine 10 mg tablet 10 mg PO QD #90 tab 08/02/18 11/05/18 lisinopril 20 mg tablet 20 mg PO BID #180 tab 08/02/18 11/05/18 venlafaxine ER 150 mg 150 mg PO QD #90 cap 08/02/18 11/05/18 capsule,extended release 24 hr Potassium Chloride 20 meq PO DAILY 11/06/18 11/06/18 Spironolact/Hydrochlorothiazid 25 mg PO DAILY 11/06/18 11/06/18 [Spironolactone-Hctz 25-25 Tab] Insulin Aspart [Novolog] 60 unit SUBCUT QD #4 vial 11/08/18 11/05/18 8. Time, care, counseling and coordination of care for this discharge is greater than 30 minutes. Exam - Vitals Vital Signs: Vital Signs Temperature 98.7 F Temperature Source Oral Pulse Rate [Apical] 108 Pulse Rate [Pulse Oximeter 92 Right] Pulse Rate 89 Respiratory Rate 18 Blood Pressure [Right Arm] 170/74 Blood Pressure 118/56 Pulse Ox 96 Oxygen Flow Rate 2 Oxygen Delivery Method Room Air Height 5 ft 2 in Weight 186 lb 9.6 oz - General General Appearance: No Acute Distress, Cooperative - Head Head Exam: Normal Inspection, Normocephalic, Atraumatic - Eye Eye Exam: POSITIVE: No Scleral Icterus - ENT ENT Exam: POSITIVE: Mucous Membranes Moist - Neck Neck Exam: JVP is not Raised - Respiratory Respiratory Exam: POSITIVE: Clear to Auscultation - Bilaterally, Breathing Non Labored - Cardiovascular Cardiovascular Exam: POSITIVE: RRR, No Murmur, No Clicks, No Gallops, No Rubs, No JVD - GI/Abdominal GI/Abdominal Exam: POSITIVE: Normal Bowel Sounds, Non Tender, Non Distended, Soft - Extremities Extremities Exam: POSITIVE: No Clubbing Present, No Edema Present, No Cyanosis Present - Neurological Neurological Exam: POSITIVE: Alert, Oriented x 3, No Facial Droop, Speech Intact / Clear, Moves All Extremities Equally Data Peritnent Studies: 11/05/18 11/05/18 11/05/18 15:07 15:10 15:10 WBC Hgb Hct Plt Count PT 11.1 INR 0.97 D-Dimer 999 H VBG pH 7.23 L VBG pCO2 24 L VBG HCO3 10 L VBG Base Excess -18 L Sodium Potassium Chloride Carbon Dioxide Anion Gap BUN Creatinine BUN/Creatinine Ratio Glucose 856 H* Calculated Osmolality Lactic Acid Calcium Total Bilirubin AST ALT Alkaline Phosphatase Total Protein Albumin Globulin Albumin/Globulin Ratio TSH 11/05/18 11/05/18 11/05/18 15:10 15:10 22:58 WBC Hgb Hct Plt Count PT INR D-Dimer VBG pH VBG pCO2 VBG HCO3 VBG Base Excess Sodium Potassium Chloride Carbon Dioxide Anion Gap BUN Creatinine BUN/Creatinine Ratio Glucose Calculated Osmolality Lactic Acid 2.2 H 1.0 Calcium Total Bilirubin AST ALT Alkaline Phosphatase Total Protein Albumin Globulin Albumin/Globulin Ratio TSH 1.56 11/06/18 11/07/18 11/08/18 06:00 04:35 04:07 WBC 7.38 Hgb 11.9 L Hct 36.7 L Plt Count 251 PT INR D-Dimer VBG pH VBG pCO2 VBG HCO3 VBG Base Excess Sodium 137 Potassium 4.5 Chloride 105 Carbon Dioxide 24 Anion Gap 8 BUN 14 Creatinine 0.6 BUN/Creatinine Ratio 23.33 H Glucose 231 H Calculated Osmolality 291.0 Lactic Acid Calcium 8.9 Total Bilirubin 0.1 L AST 29 ALT 24 Alkaline Phosphatase 122 Total Protein 6.1 Albumin 3.4 L Globulin 2.7 Albumin/Globulin Ratio 1.20 L TSH Patient Problems - Patient Problem List (1) DKA (diabetic ketoacidoses) Current Visit: Yes Status: Acute Code(s): E11.10 - Type 2 diabetes mellitus with ketoacidosis without coma Qualifiers: Diabetes mellitus type: type 1 Diabetes mellitus complication detail: with out coma Qualified Code(s): E10.10 - Type 1 diabetes mellitus with ketoacidosis without coma Category: Medical (2) History of transient ischemic attack Current Visit: Yes Status: Acute Code(s): Z86.73 - Personal history of transient ischemic attack (TIA), and cerebral infarction without residual deficits Category: Medical (3) Hypertension Current Visit: No Status: Acute Comment: Same medication Code(s): I10 - Essential (primary) hypertension Qualifiers: Hypertension type: essential hypertension Qualified Code(s): I10 - Essential (primary) hypertension Category: Medical (4) Hypercholesterolemia Current Visit: No Status: Chronic Comment: Same med Code(s): E78.0 - Pure hypercholesterolemia Category: Medical (5) Diarrhea Current Visit: Yes Status: Acute Code(s): R19.7 - Diarrhea, unspecified Category: Medical (6) Colitis Current Visit: Yes Status: Acute Code(s): K52.9 - Noninfective gastroenteritis and colitis, unspecified Category: Medical
[2018-11-08 18:44] VITALS: BP 127/66; RESP 20; TEMP 98
[2018-11-08 20:57] VITALS: O2SAT 94
== END 2018-11-08 20:45 | disposition home or self-care (01) | DRG 638 ==
LOC: ER 14:19 → ICU 18:01 → MED/SURG 11-07 07:52
PROVIDERS: ADMIT Internal Medicine; ATTEND Internal Medicine